=== PATIENT | male | born 1950 | race Caucasian/White ===

== ENCOUNTER 2017-01-06 17:02 | Emergency (ER) | payer OTHER ==
--- NOTE | 2017-01-06 17:22 | DR.CP ---
HPI - Time Seen Time seen: 17:20 - HPI Comment HPI Comment: PATIENT IS 66YR OLD MALE WITH COPD ON NEB AND INHALER PRESENTED WITH BELOW CHEST PAIN WITH SOB. TOOK 81MG ASA AND ONE S/L NTG WITHOUT RELIEF. CAME TO ED. THE NTG WAS FROM HIS [facility]. SIMILAR PAIN 10DAYS AGO THAT WAS RELIEVE WITH ONE 81MG ASA. - Complaint Chief Complaint Doctor Comments: CHEST PAIN RADIATING TO LEFT ARM TIMES ONE AND HALF HOURS. - Reviewed Nurses Notes Review: Yes - Source History Provided: Patient - Mode of Arrival Mode of Arrival: Ambulatory - Timing Came on: Suddenly - Duration Duration: Constant Duration: Hours - Location Chest Pain Radiation Location: Left Arm - Context Onset: At rest Cardiac Risk Factors: Smoker PE Risk Factors: None History of: Similar pain in the past (10DAYS AGO AND WENT AWAY.) Prehospital Care: [facility] Nitro, ASA - Quality Quality: Sharp, Other (TIGHTNESS) - Severity Severity: Severe - Modifying Factors Worsens: Breathing Impoves: Nothing - Associated Signs and Symptoms Associated Signs and Symptoms: Shortness of Breath ROS - Review of Systems Constitutional: Weakness, Fatigue. negative: Chills, Fever Eyes: No Symptoms Reported. negative: Eye Pain, Discharge ENTM: negative: Ear Pain, Nose Discharge, Nose Congestion, Throat Pain Respiratoy: Non-Productive Cough, Short of Breath, Wheezing Cardiovascular: Chest Pain. negative: Edema Gastrointestinal/Abdominal: Nausea. negative: Abdominal Pain, Diarrhea, Vomiting Genitourinary: negative: Dysuria, Frequency, Hematuria Neurological: Weakness. negative: Headache, Dizziness Musculoskeletal: No Symptoms Reported Integumentary: No Symptoms Reported Hematologic/Lymphatic: No Symptoms Reported Endocrine: No Symptoms Reported All Other Systems: Reviewed and Negative PE - Vitals Vitals: Temperature 97.2 F Pulse Rate [Left Brachial] 61 Pulse Rate 82 Respiratory Rate 20 Blood Pressure [Left Arm] 143/87 Blood Pressure 178/98 O2 Sat by Pulse Oximetry 100 - General Limitations: No Limitations General Appearance: Alert - Head Head Exam: Normal Inspection - Eyes Eye exam: Normal Appearance - ENT ENT Exam: Normal External Ear Exam - Chest Chest Inspection: Symmetric Chest Wall Rise - Respiratory Respiratory Exam: Normal Lung Sounds Bilat Respiratory Exam: Bilateral Wheezing, Bilateral Rhonchi, Lower Wheezing, Lower Rhonchi - Cardiovascular Cardiovascular Exam: Regular Rate, Normal Rhythm, Normal Heart Sounds Pulse: Normal, Radial, Femoral Edema: Normal - Abdominal Exam Abdominal Exam: Normal Bowel Sounds, Soft. negative: Tenderness - Extremities Extremities Exam: Normal Inspection - Back Back Exam: Normal Inspection - Neurologic Neurological Exam: Alert, Oriented X3 - Psychiatric Psychiatric Exam: Anxious - Skin Skin Exam: Normal Color MDM - Differential Diagnosis Differential Diagnosis: Angina, CHF, Esophageal Reflux/Spasm, Myocardial Infarction, Pericarditis, Pleuritis, Pancreatitis, Pneumonia, Pneumothorax, Pulmonary Embolus Course - Treatment Treatment: TNK PER PROTOCOL GIVEN IN ED. SEE ORDERS. - Consultation Consultation Comments: DISCUSS PATIENT WITH DR. REYES HAND INSERTER OPERATOR AT [facility] IN [place]. THROMBOLYTIC THERAPY RECOMMENDED AND TRANSFER TO ED IN [facility]. - Education/Counseling Education/Counseling: Patient, Education Educated On: Treatment, Diagnosis ROR - Labs Reviewed Laboratory Results Reviewed?: Yes Result Diagrams: 01/06/17 17:35 01/06/17 17:35 Laboratory: WBC 9.9 X10^3/uL (3.6-10.0) 01/06/17 17:35 RBC 5.05 X10^6/uL (4.7-6.0) 01/06/17 17:35 Hgb 15.8 g/dL (13.5-18.0) 01/06/17 17:35 Hct 45.6 % (42.0-54.0) 01/06/17 17:35 MCV 90.3 fL (80.0-100.0) 01/06/17 17:35 MCH 31.3 pg (27.0-34.0) 01/06/17 17:35 MCHC 34.7 g/dL (33.0-35.0) 01/06/17 17:35 RDW 13.9 % (11.6-16.5) 01/06/17 17:35 Plt Count 285 X10^3/uL (150.0-450.0) 01/06/17 17:35 MPV 8.1 fL (7.4-11.0) 01/06/17 17:35 Neut % 54.7 % (42.0-75.0) 01/06/17 17:35 Lymph % 29.2 % (21.0-51.0) 01/06/17 17:35 Kings % 12.3 % (0.0-13.0) 01/06/17 17:35 Eos % 2.4 % (0.9-2.9) 01/06/17 17:35 Baso % 1.4 % (0.2-1.0) H 01/06/17 17:35 Neut # 5.4 x10^3/uL (2.2-4.8) H 01/06/17 17:35 Lymph # 2.9 X10^3/uL (1.3-2.9) 01/06/17 17:35 Kings # 1.2 x10^3/uL (0.3-0.8) H 01/06/17 17:35 Eos # 0.2 x10^3/uL (0.0-0.2) 01/06/17 17:35 Baso # 0.1 X10^3/uL (0.0-0.1) 01/06/17 17:35 Absolute Nucleated RBC 0.1 /100WBC 01/06/17 17:35 INR Target Range - 01/06/17 17:35 INR 0.97 (0.8-1.3) 01/06/17 17:35 PTT 29.3 SECONDS (22.9-36.5) 01/06/17 17:35 PTT Comment - 01/06/17 17:35 Fibrinogen 337 mg/dL (239-489) 01/06/17 17:35 Sodium 135 mmol/L (136-145) L 01/06/17 17:35 Corrected Sodium TNP 01/06/17 17:35 Potassium 4.4 mmol/L (3.5-5.1) 01/06/17 17:35 Chloride 99 mmol/L (98-107) 01/06/17 17:35 Carbon Dioxide 28.6 mmol/L (21-32) 01/06/17 17:35 BUN 12 mg/dL (7-18) 01/06/17 17:35 Creatinine 1.09 mg/dL (0.70-1.30) 01/06/17 17:35 Est GFR (MDRD) Af Amer > 60 (>60) 01/06/17 17:35 Est GFR (MDRD) Non-Af > 60 (>60) 01/06/17 17:35 Glucose 107 mg/dL (65-99) H 01/06/17 17:35 Calcium 9.2 mg/dL (8.5-10.1) 01/06/17 17:35 Corrected Calcium TNP 01/06/17 17:35 Total Bilirubin 0.30 mg/dL (0.2-1.0) 01/06/17 17:35 AST 20 Units/L (15-37) 01/06/17 17:35 ALT 25 Units/L (12-78) 01/06/17 17:35 Alkaline Phosphatase 67 Units/L (46-116) 01/06/17 17:35 Creatine Kinase 60 Units/L (39-308) 01/06/17 17:35 CK-MB (CK-2) < 1.0 ng/mL (0-4.0) 01/06/17 17:35 CK/CKMB % Calc 1.7 % (<4) 01/06/17 17:35 Troponin I 0.04 ng/mL (0-1.5) 01/06/17 17:35 Total Protein 7.6 g/dL (6.4-8.2) 01/06/17 17:35 Albumin 3.8 g/dL (3.4-5.0) 01/06/17 17:35 Globulin 3.8 g/dL (2.5-4.5) 01/06/17 17:35 Albumin/Globulin Ratio 1.0 Ratio (1.1-2.1) L 01/06/17 17:35 Specimen Type Catherized urine 01/06/17 18:11 Urine Color Yellow (YELLOW) 01/06/17 18:11 Urine Appearance Hazy (CLEAR) 01/06/17 18:11 Urine pH 5.0 (5.0 - 8.0) 01/06/17 18:11 Ur Specific [place] 1.030 (1.000-1.030) 01/06/17 18:11 Urine Protein 1+ (NEGATIVE) 01/06/17 18:11 Urine Glucose (UA) Negative (NEGATIVE) 01/06/17 18:11 Urine Ketones Negative (NEGATIVE) 01/06/17 18:11 Urine Occult Blood 1+ (NEGATIVE) 01/06/17 18:11 Urine Nitrite Negative (NEGATIVE) 01/06/17 18:11 Urine Bilirubin Negative (NEGATIVE) 01/06/17 18:11 Urine Urobilinogen Normal (NORMAL) 01/06/17 18:11 Ur Leukocyte Esterase 1+ (NEGATIVE) 01/06/17 18:11 Urine RBC 0-5 /HPF (NEGATIVE) 01/06/17 18:11 Urine WBC 0-2 /HPF (NEGATIVE) 01/06/17 18:11 Ur Squamous Epith Cells Negative /HPF (NEGATIVE) 01/06/17 18:11 Urine Bacteria Trace /HPF (NEGATIVE) 01/06/17 18:11 Ur Culture Indicated? No/not indicated 01/06/17 18:11 Blood Type O POSITIVE 01/06/17 18:05 Antibody Screen Negative 01/06/17 18:05 - XRAY XRAY Interpreted by: Radiologist XRAY Findings: REPORT DISCUSS WITH PATIENT. 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
[2017-01-06] MEDS ORDERED: ASPIRIN 81 MG CHEWTAB ONE (17:27)
[2017-01-06] MEDS ORDERED: PLAVIX ONE (17:27)
[2017-01-06] MEDS ORDERED: LOPRESSOR INJ 5 MG AMP ONE (17:27)
[2017-01-06 17:31] LABS: BASOPHILS # (AUTO) 0.1 X10^3/uL (0.0-0.1); BASOPHILS % (AUTO) 1.4 % (0.2-1.0); EOSINOPHILS # (AUTO) 0.2 x10^3/uL (0.0-0.2); EOSINOPHILS % (AUTO) 2.4 % (0.9-2.9); HEMATOCRIT 45.6 % (42.0-54.0); HEMOGLOBIN 15.8 g/dL (13.5-18.0); LYMPHOCYTES # (AUTO) 2.9 X10^3/uL (1.3-2.9); LYMPHOCYTES % (AUTO) 29.2 % (21.0-51.0); MEAN CORPUSCULAR HEMOGLOBIN 31.3 pg (27.0-34.0); MEAN CORPUSCULAR HGB CONC 34.7 g/dL (33.0-35.0); MEAN CORPUSCULAR VOLUME 90.3 fL (80.0-100.0); MEAN PLATELET VOLUME 8.1 fL (7.4-11.0); MONOCYTES # (AUTO) 1.2 x10^3/uL (0.3-0.8); MONOCYTES % (AUTO) 12.3 % (0.0-13.0); NEUTROPHILS # (AUTO) 5.4 x10^3/uL (2.2-4.8); NEUTROPHILS % (AUTO) 54.7 % (42.0-75.0); PLATELET COUNT 285 X10^3/uL (150.0-450.0); RED BLOOD COUNT 5.05 X10^6/uL (4.7-6.0); RED CELL DISTRIBUTION WIDTH 13.9 % (11.6-16.5); WHITE BLOOD COUNT 9.9 X10^3/uL (3.6-10.0)
[2017-01-06] MEDS ORDERED: LOPRESSOR INJ 5 MG AMP IVP ONE (17:34)
[2017-01-06] MEDS ORDERED: ASPIRIN 81 MG CHEWTAB PO SCH (17:34)
--- NOTE | 2017-01-06 17:37 | RAD ---
HISTORY: Chest pain. Study: Single-view chest. Comparison: None. Findings: The trachea is midline. The cardiac silhouette is within normal limits. A 5 mm calcific density pro jects over the right lung base possibly reflecting a granuloma. The lungs are otherwise clear without focal consolidation, pleural effusion or pneumothorax. The bony thorax is unremarkable. IMPRESSION: No acute cardiopulmonary disease. Reported By:
[2017-01-06] MEDS ORDERED: MORPHINE SULFATE INJ 4 MG ONE ×2 (17:57→18:40)
[2017-01-06] MEDS ORDERED: ZOFRAN INJ 4 MG VIAL ONE (17:57)
[2017-01-06] MEDS ORDERED: HEPARIN SODIUM IN D5W 25,000 UNITS/500 ML BAG IV PRN (18:00)
[2017-01-06] MEDS ORDERED: ZOFRAN INJ 4 MG VIAL IVP PRN (18:00)
[2017-01-06] MEDS ORDERED: MORPHINE SULFATE INJ 4 MG IVP ONE ×2 (18:00→18:39)
[2017-01-06] MEDS ORDERED: PLAVIX PO SCH (18:00)
[2017-01-06 18:09] VITALS: BP 143/87; BMI 22.6
[2017-01-06 18:11] LABS: BLOOD UREA NITROGEN 12 mg/dL (7-18); CALCIUM 9.2 mg/dL (8.5-10.1); CARBON DIOXIDE 28.6 mmol/L (21-32); CHLORIDE 99 mmol/L (98-107); CREATININE 1.09 mg/dL (0.70-1.30); SODIUM 135 mmol/L (136-145); TROPONIN I 0.04 ng/mL (0-1.5); eGFR BLACK RACES > 60 (>60); eGFR NON BLACK RACES > 60 (>60)
[2017-01-06 18:15] LABS: ALANINE AMINOTRANSFERASE 25 Units/L (12-78); ALBUMIN 3.8 g/dL (3.4-5.0); ALKALINE PHOSPHATASE 67 Units/L (46-116); ASPARTATE AMINO TRANSFERASE 20 Units/L (15-37); CREATINE KINASE 60 Units/L (39-308); CREATINE KINASE MB < 1.0 ng/mL (0-4.0); TOTAL PROTEIN 7.6 g/dL (6.4-8.2)
[2017-01-06] MEDS ORDERED: [UNRECOGNIZED DRUG - OTHER] IV PRN (18:26)
[2017-01-06] MEDS ORDERED: TNKASE IVP STA (18:29)
[2017-01-06 18:30] LABS: CKMB % 1.7 % (<4)
[2017-01-06 18:42] LABS: BILIRUBIN,URINE NEGATIVE (NEGATIVE); BLOOD/HEMOGLOBIN,URINE 1+ (NEGATIVE); GLUCOSE, URINE NEGATIVE (NEGATIVE); KETONES,URINE NEGATIVE (NEGATIVE); LEUKOCYTE ESTERASE ,URINE 1+ (NEGATIVE); NITRITES,URINE NEGATIVE (NEGATIVE); PROTEIN,URINE 1+ (NEGATIVE); UROBILINOGEN,URINE NORMAL (NORMAL)
[2017-01-06 18:48] LABS: APPEARANCE,URINE HAZY (CLEAR); COLOR,URINE YELLOW (YELLOW); RBC,URINE 0-5 /HPF (NEGATIVE); SQUAMOUS EPITHELIAL CELL,UR NEGATIVE /HPF (NEGATIVE)
[2017-01-06 18:49] LABS: BACTERIA,URINE TRACE /HPF (NEGATIVE)
== END 2017-01-06 19:05 | disposition short-term general hospital (02) ==
LOC: ER 17:09
DX: I21.19 ST elevation (STEMI) myocardial infarction involving other coronary artery of inferior wall (principal)
CPT/HCPCS: 36415; 71010; 80053; 81001; 82550; 82553; 84484; 85025; 85384; 85610; 85730; 86850; 86900; 86901; 93005; 93010; 93041; 96365; 96374; 96375; 99291; 99292; A4222; J2270; J2405; J3490

== ENCOUNTER 2017-11-01 17:22 | Observation (INO) ==
[2017-11-01 17:29] VITALS: BMI 22.1
[2017-11-01] MEDS ORDERED: NITRO-BID OINT 2% Multi-Dose tube ONE (17:39)
[2017-11-01] MEDS: NITROSTAT SL PRN ×2 (17:45→17:59)
[2017-11-01 17:48] LABS: BASOPHILS # (AUTO) 0.1 X10^3/uL (0.0-0.1); BASOPHILS % (AUTO) 1.2 % (0.2-1.0); EOSINOPHILS # (AUTO) 0.1 x10^3/uL (0.0-0.2); HEMATOCRIT 46.7 % (42.0-54.0); HEMOGLOBIN 15.9 g/dL (13.5-18.0); LYMPHOCYTES # (AUTO) 2.2 X10^3/uL (1.3-2.9); LYMPHOCYTES % (AUTO) 23.5 % (21.0-51.0); MEAN CORPUSCULAR HEMOGLOBIN 31.1 pg (27.0-34.0); MEAN CORPUSCULAR HGB CONC 34.1 g/dL (33.0-35.0); MEAN PLATELET VOLUME 7.9 fL (7.4-11.0); MONOCYTES # (AUTO) 0.9 x10^3/uL (0.3-0.8); MONOCYTES % (AUTO) 9.9 % (0.0-13.0); NEUTROPHILS # (AUTO) 5.9 x10^3/uL (2.2-4.8); NEUTROPHILS % (AUTO) 64.4 % (42.0-75.0); PLATELET COUNT 259 X10^3/uL (150.0-450.0); RED BLOOD COUNT 5.13 X10^6/uL (4.7-6.0); WHITE BLOOD COUNT 9.2 X10^3/uL (3.6-10.0)
--- NOTE | 2017-11-01 17:48 | DR.HEADACH ---
HPI Time Seen Time seen: 17:37 Primary Care Physician Primary Care Physician: ALINA HPI Comment HPI Comment: PATIENT SAID HE HAS LEFT SIDED HEADACHE FOR 2 WEEKS. WORSE TODAY. LEFT SIDED CHEST PRESSURE AND TIGHTNESS THAT STARTED TODAY AND GETTING WOSE. PAIN ASSOCIATED WITH WEAKNESS AND SOB. Complaint/Symptoms Chief Complaint Doctors Comments: CHEST PAIN, HEADACHE. Chief Complaint:: PT C/O CHEST PAIN AND TIGTNESS TO HIS CHEST AND SOB, PT C/O PAIN TO THE RIGHT SIDE OF HEAD THAT STARTED 2 WEEKS AGO AND HE WANTS TO MAKE SURE HE DOES NOT HAVE A BLEED, Pertinent History: Cardiac Problems and Headache Self Treatment fo Chief Complaint: NONE Reviewed Nurses Notes Reviewed: Yes Source History Provided: Patient Mode of Arrival Mode of Arrival: Ambulatory Timing Onset of Chief Complaint: 11/01/17 Duration Since Onset: Constant Duration: Days Location Headache Location: Parietal Quality Quality: Throbbing and Aching Severity Headache Severity: Worst Headache of Life Context Headache Onset Circumstances: Spontaneous History of: None Prior Work Up: None Modifying Factors Improves With: Analgesics Worsens: Nothing Associated Signs and Symptoms Associated Symptoms: None Aura: denies Visual, Sensory, Motor and Mood PMH PMH Past Medical History: Yes Past Medical History: COPD and [place] Past Surgical History: Yes Surgical History: Angioplasty/Stents Family History History of Family Medical Conditions: No Social History Does patient currently use any type of tobacco product: No Have you used tobacco products in the last 12 months: No Type of Tobacco Use: None Does any household member use tobacco: No Alcohol Use: None Do you use any recreational Drugs:: No Lives With: Family Lives Where: Home infectious screening In the last 2 months have you had wt loss of >10#?: NO Have you had fever, night sweats or hemotysis?: No Have you traveled outside the country in the last 6 months?: No Isolation: Standard ROS Review of Systems Constitutional: Weakness and Fatigue; negative Chills and Fever Eyes: No Symptoms Reported ENTM: negative Ear Pain, Ear Discharge, Nose Congestion, Mouth Pain and Throat Pain Respiratoy: Non-Productive Cough and Short of Breath; negative Productive Cough , Wheezing (TIGHTNESS.) and Hemoptysis Cardiovascular: Chest Pain Gastrointestinal/Abdominal: No Symptoms Reported Genitourinary: No Symptoms Reported Neurological: Headache and Weakness Musculoskeletal: No Symptoms Reported Integumentary: No Symptoms Reported Hematologic/Lymphatic: No Symptoms Reported Psychiatric: No Symptoms Reported All Other Systems: Reviewed and Negative PE Vital Signs Vitals: Temperature 96.9 F Pulse Rate [Apical] 52 Pulse Rate 66 Respiratory Rate 11 Blood Pressure [Left Arm] 158/76 Blood Pressure 134/75 O2 Sat by Pulse Oximetry 98 General General Appearance: Alert and In No Apparent Distress Head Head Exam: Normal Inspection, Atraumatic and Normocephalic Eyes Eye exam: PERRL and EOMI; negative Scleral Icterus and Conjunctival Injection Eyelids: Normal Inspection: Bilateral Pupils: Regular, Round: Bilateral and Reactive: Bilateral Sclera/Conjunctival: Normal Inspection: Bilateral ENT ENT Exam: Normal Exam, Normal Oropharynx, Normal External Ear Exam, Mucous Membranes Moist and TM's Normal Bilaterally External Ear Exam: Normal External Inspection TM/Canal Exam: Bilateral: Normal Nose Exam: Normal Nose Exam Mouth Exam: Normal Inspection Teeth Exam: Normal Inspection Throat Exam: Normal Inspection Neck Neck Exam: Normal Inspection and Trachea Midline Chest Chest Inspection: Normal Inspection and Symmetric Chest Wall Rise Respiratory Respiratory Exam: Normal Lung Sounds Bilat Respiratory Exam: Bilateral: Rales and Lower: Rales Cardiovascular Cardiovascular Exam: Regular Rate, Normal Rhythm and Normal Heart Sounds Abdominal Exam Abdominal Exam: Normal Inspection, Normal Bowel Sounds and Soft; negative Tenderness Extremities Extremities Exam: Normal Inspection and Normal Capillary Refill; negative Edema Back Back Exam: Normal Inspection Neurologic Neurological Exam: Alert, Oriented X3 and CN II-XII Intact; negative Motor Sensory Deficit Psychiatric Psychiatric Exam: Normal Affect, Normal Mood and Anxious Skin Skin Exam: Warm MDM Additional Information Obtained Additional Information Obtained From: Family Differential Diagnosis Differential Diagnosis: Considerations may include:: Migraine, Hypertensive, CVA , Intracerebral Hemorrhage, Mass Lesion and Sinusitis Differential Diagnosis Comment: CHEST PAIN, UT, PNEUMONIA, PE, PNEUMOTHORAX COURSE Treatment Treatment: SEE ORDERS. Consultation Consultation Comments: DISCUSS PATIENT WITH DR. ARAMBULA. HE WILL ADMIT PATIENT. Education/Counseling Education/Counseling: Patient, Family and Education Educated On: Diagnosis ROR Labs Reviewed Laboratory Results Reviewed?: Yes Result Diagrams: 11/01/17 18:04 11/01/17 18:04 Laboratory: WBC 9.2 X10^3/uL (3.6-10.0) 11/01/17 18:04 RBC 5.13 X10^6/uL (4.7-6.0) 11/01/17 18:04 Hgb 15.9 g/dL (13.5-18.0) 11/01/17 18:04 Hct 46.7 % (42.0-54.0) 11/01/17 18:04 MCV 91.0 fL (80.0-100.0) 11/01/17 18:04 MCH 31.1 pg (27.0-34.0) 11/01/17 18:04 MCHC 34.1 g/dL (33.0-35.0) 11/01/17 18:04 RDW 14.0 % (11.6-16.5) 11/01/17 18:04 Plt Count 259 X10^3/uL (150.0-450.0) 11/01/17 18:04 MPV 7.9 fL (7.4-11.0) 11/01/17 18:04 Neut % (Auto) 64.4 % (42.0-75.0) 11/01/17 18:04 Lymph % (Auto) 23.5 % (21.0-51.0) 11/01/17 18:04 Elk % (Auto) 9.9 % (0.0-13.0) 11/01/17 18:04 Eos % (Auto) 1.0 % (0.9-2.9) 11/01/17 18:04 Baso % (Auto) 1.2 % (0.2-1.0) H 11/01/17 18:04 Neut # (Auto) 5.9 x10^3/uL (2.2-4.8) H 11/01/17 18:04 Lymph # (Auto) 2.2 X10^3/uL (1.3-2.9) 11/01/17 18:04 Elk # (Auto) 0.9 x10^3/uL (0.3-0.8) H 11/01/17 18:04 Eos # (Auto) 0.1 x10^3/uL (0.0-0.2) 11/01/17 18:04 Baso # (Auto) 0.1 X10^3/uL (0.0-0.1) 11/01/17 18:04 Absolute Nucleated RBC 0.0 /100WBC 11/01/17 18:04 INR Target Range - 11/01/17 18:04 INR 0.94 (0.8-1.3) 11/01/17 18:04 APTT 24.6 SECONDS (22.9-36.5) 11/01/17 18:04 PTT Comment - 11/01/17 18:04 D-Dimer < 100 ng/mL (0-400) 11/01/17 18:04 Sodium 134 mmol/L (136-145) L 11/01/17 18:04 Corrected Sodium TNP 11/01/17 18:04 Potassium 4.3 mmol/L (3.5-5.1) 11/01/17 18:04 Chloride 101 mmol/L (98-107) 11/01/17 18:04 Carbon Dioxide 22.9 mmol/L (21-32) 11/01/17 18:04 BUN 14 mg/dL (7-18) 11/01/17 18:04 Creatinine 0.99 mg/dL (0.70-1.30) 11/01/17 18:04 Est GFR (MDRD) Af Amer > 60 (>60) 11/01/17 18:04 Est GFR (MDRD) Non-Af > 60 (>60) 11/01/17 18:04 Glucose 96 mg/dL (65-99) 11/01/17 18:04 Calcium 9.1 mg/dL (8.5-10.1) 11/01/17 18:04 Corrected Calcium TNP 11/01/17 18:04 Magnesium 2.2 mg/dL (1.7-2.9) 11/01/17 18:04 Total Bilirubin 0.60 mg/dL (0.2-1.0) 11/01/17 18:04 AST 24 Units/L (15-37) 11/01/17 18:04 ALT 29 Units/L (12-78) 11/01/17 18:04 Alkaline Phosphatase 65 Units/L (46-116) 11/01/17 18:04 Creatine Kinase 90 Units/L (39-308) 11/01/17 18:04 CK-MB (CK-2) 1.5 ng/mL (0-4.0) 11/01/17 18:04 CK/CKMB % Calc 1.7 % (<4) 11/01/17 18:04 Troponin I < 0.02 ng/mL (0-1.5) 11/01/17 18:04 B-Natriuretic Peptide 60.5 pg/mL (0-79) 11/01/17 18:07 Total Protein 7.5 g/dL (6.4-8.2) 11/01/17 18:04 Albumin 4.0 g/dL (3.4-5.0) 11/01/17 18:04 Globulin 3.5 g/dL (2.5-4.5) 11/01/17 18:04 Albumin/Globulin Ratio 1.1 Ratio (1.1-2.1) 11/01/17 18:04 XRAY XRAY Interpreted by: Radiologist XRAY Findings: REPORT DISCUSS WITH PATIENT. EKG [place]: Normal Rhythm: NSR Block: None Hypertrophy: None ST: Normal Diagnosis Discharge Problem: Chest pain, Headache
--- NOTE | 2017-11-01 18:11 | CT ---
CT of the head without contrast. Indication: Right-sided headache Technique: 5 mm axial images of the brain was obtained with coronal sagittal reformats generated from the original data set. Comparison: None Findings: There is no intracranial hemorrhage, mass effect or abnormal hypodensity to suggest recent ischemia. The ventricles and extra-axial spaces normal. The globes, sella posterior fossa show no abn ormality. The visualized paranasal sinuses and mastoid air cells are clear bilaterally. Conclusion: No intracranial hemorrhage, mass effect or hypodensities to suggest recent ischemia. Reported By:
[2017-11-01] MEDS ORDERED: MORPHINE SULFATE INJ 4 MG IVP ONE (18:28)
[2017-11-01] MEDS ORDERED: MORPHINE SULFATE INJ 4 MG ONE (18:30)
[2017-11-01 18:33] LABS: BLOOD UREA NITROGEN 14 mg/dL (7-18); CALCIUM 9.1 mg/dL (8.5-10.1); CARBON DIOXIDE 22.9 mmol/L (21-32); CHLORIDE 101 mmol/L (98-107); CREATININE 0.99 mg/dL (0.70-1.30); SODIUM 134 mmol/L (136-145); TROPONIN I < 0.02 ng/mL (0-1.5); eGFR NON BLACK RACES > 60 (>60)
--- NOTE | 2017-11-01 18:34 | RAD ---
HISTORY: Chest pain and shortness of breath. Study: Portable chest. Comparison: Chest x-ray dated January 06, 2017. Findings: The trachea is midline. The cardiac silhouette is unremarkable. Chronic emphysematous changes. No o bvious focal consolidation, pleural effusion, or pneumothorax. The bony thorax is unremarkable. IMPRESSION: No acute cardiopulmonary disease. Reported By:
[2017-11-01 18:37] LABS: ALANINE AMINOTRANSFERASE 29 Units/L (12-78); ALKALINE PHOSPHATASE 65 Units/L (46-116); ASPARTATE AMINO TRANSFERASE 24 Units/L (15-37); CKMB % 1.7 % (<4); CREATINE KINASE 90 Units/L (39-308); CREATINE KINASE MB 1.5 ng/mL (0-4.0); MAGNESIUM 2.2 mg/dL (1.7-2.9); TOTAL PROTEIN 7.5 g/dL (6.4-8.2)
[2017-11-01] MEDS ORDERED: MORPHINE SULFATE INJ 2 MG INJ IVP PRN (22:23)
[2017-11-01] MEDS ORDERED: NITROGLYCERIN IV PREMIX 50 MG 50 MG/250 ML BAG IV PRN (22:23)
[2017-11-01] MEDS: PROTONIX INJ 40 MG VIAL IVP SCH (23:30)
[2017-11-01] MEDS: NS 1000 ML 1,000 ML IV SCH (23:30)
[2017-11-02 05:14] LABS: BASOPHILS # (AUTO) 0.1 X10^3/uL (0.0-0.1); EOSINOPHILS # (AUTO) 0.2 x10^3/uL (0.0-0.2); EOSINOPHILS % (AUTO) 2.6 % (0.9-2.9); HEMATOCRIT 43.1 % (42.0-54.0); HEMOGLOBIN 14.7 g/dL (13.5-18.0); LYMPHOCYTES # (AUTO) 2.7 X10^3/uL (1.3-2.9); MEAN CORPUSCULAR HEMOGLOBIN 30.8 pg (27.0-34.0); MEAN CORPUSCULAR HGB CONC 34.1 g/dL (33.0-35.0); MEAN CORPUSCULAR VOLUME 90.3 fL (80.0-100.0); MEAN PLATELET VOLUME 7.5 fL (7.4-11.0); MONOCYTES # (AUTO) 1.3 x10^3/uL (0.3-0.8); MONOCYTES % (AUTO) 14.3 % (0.0-13.0); NEUTROPHILS # (AUTO) 4.7 x10^3/uL (2.2-4.8); NEUTROPHILS % (AUTO) 52.1 % (42.0-75.0); PLATELET COUNT 215 X10^3/uL (150.0-450.0); RED BLOOD COUNT 4.77 X10^6/uL (4.7-6.0); RED CELL DISTRIBUTION WIDTH 13.9 % (11.6-16.5)
[2017-11-02 05:27] LABS: ALANINE AMINOTRANSFERASE 25 Units/L (12-78); ALBUMIN 3.5 g/dL (3.4-5.0); ALKALINE PHOSPHATASE 58 Units/L (46-116); ASPARTATE AMINO TRANSFERASE 17 Units/L (15-37); BLOOD UREA NITROGEN 12 mg/dL (7-18); CALCIUM 8.1 mg/dL (8.5-10.1); CARBON DIOXIDE 26.1 mmol/L (21-32); CHLORIDE 104 mmol/L (98-107); CHOL/HDL RATIO 2.5 (0.0-5.0); CHOLESTEROL 101 mg/dL (0-200); CREATININE 0.96 mg/dL (0.70-1.30); HDL CHOLESTEROL 40 mg/dL (40-60); MAGNESIUM 2.4 mg/dL (1.7-2.9); SODIUM 138 mmol/L (136-145); TOTAL PROTEIN 6.8 g/dL (6.4-8.2); TRIGLYCERIDES 136 mg/dL (0-150); eGFR NON BLACK RACES > 60 (>60)
[2017-11-02 06:26] LABS: BILIRUBIN,URINE NEGATIVE (NEGATIVE); BLOOD/HEMOGLOBIN,URINE NEGATIVE (NEGATIVE); GLUCOSE, URINE 4+ (NEGATIVE); KETONES,URINE 1+ (NEGATIVE); LEUKOCYTE ESTERASE ,URINE NEGATIVE (NEGATIVE); NITRITES,URINE NEGATIVE (NEGATIVE); PROTEIN,URINE 1+ (NEGATIVE); UROBILINOGEN,URINE NORMAL (NORMAL)
[2017-11-02 06:54] LABS: APPEARANCE,URINE CLEAR (CLEAR); COLOR,URINE YELLOW (YELLOW)
[2017-11-02 06:57] LABS: RBC,URINE NONE SEEN /HPF (NONE SEEN); SQUAMOUS EPITHELIAL CELL,UR RARE /HPF (NEGATIVE)
[2017-11-02 06:58] LABS: AMORPHOUS SEDIMENT,UR TRACE /HPF (NEGATIVE); BACTERIA,URINE NEGATIVE /HPF (NEGATIVE); HYALINE CASTS, URINE FEW /LPF (NEGATIVE)
[2017-11-02] MEDS: PROTONIX INJ 40 MG VIAL IVP SCH (09:01)
[2017-11-02] MEDS ORDERED: LOPRESSOR TAB 50 MG ONE (09:18)
[2017-11-02] MEDS: ASPIRIN EC 81 MG PO SCH (09:27)
[2017-11-02] MEDS: LOPRESSOR TAB 50 MG PO SCH ×3 (09:27→21:30)
[2017-11-02] MEDS: PLAVIX PO SCH (09:27)
[2017-11-02] MEDS ORDERED: DUONEB 0.5 MG/3 MG ONE (09:38)
[2017-11-02] MEDS: DUONEB 0.5 MG/3 MG NEB SCH ×4 (09:45→21:15)
[2017-11-02] MEDS ORDERED: Atrovent NEB TX 0.02% NEB SCH (10:00)
[2017-11-02 11:09] LABS: CKMB % 1.4 % (<4); CREATINE KINASE 93 Units/L (39-308); CREATINE KINASE MB 1.3 ng/mL (0-4.0); TROPONIN I < 0.02 ng/mL (0-1.5)
[2017-11-02] MEDS: ATIVAN TAB 1 MG PO PRN ×2 (11:35→20:47)
[2017-11-02] MEDS: NS 1000 ML 1,000 ML IV SCH (11:49)
[2017-11-02] MEDS ORDERED: DUONEB 0.5 MG/3 MG NEB SCH (12:00)
--- NOTE | 2017-11-02 12:16 | DR.H&P ---
H&P - History & Physical for Day of: H&P Date: 11/01/17 - Chief Complaint Chief Complaint: LEFT SIDE HEAD PAIN, CP - History of Present Illness History of Present Illness: 67 [facility] ER ADMISSION AFTER PRESENTING WITH [facility] LEFT SIDE HEAD PAIN, STAHL WORSE OVER PAST WEEK WITH ONSET OF CHEST PAIN. PT STATES " I THINK ITS MY NERVES. NARENDRA BEEN REAL ANXIOUS ABOUT HEAD". PT HAS PMH OF COPD, HTN AND CAD. PT STATES STENT PLACEMENT 12/2016 AND HAS HAD CARDIAC EVALUATION AT [facility] IN THE LAST 3-[address] PT [address] HEAD IN ER WITHOUT ACUTE FINDINGS. PT ADMITTED R/O AMI, EVALUATION OF PAIN LEFT SIDE HEAD. - Past Medical History Past Medical History: COPD, Coronary Artery Disease, Hypertension, [place] - Past Surgical History Surgical History: Angioplasty/Stents - Social History Does patient currently use any type of tobacco product: No Have you used tobacco products in the last 12 months: No Type of Tobacco Use: Smokeless Does any household member use tobacco: No Alcohol Use: None Drug Use: Prescription Drugs - Medications Home Medications: No Known Drug Allergies Allergy (Verified 11/01/17 22:01) CONTINUE taking the following medications aspirin [Aspir-81] 81 mg PO DAILY 11/02/17 [History] atorvastatin [Lipitor] 40 mg PO DAILY 11/02/17 [History] clopidogrel [Plavix] 75 mg PO DAILY 11/02/17 [History] ipratropium-albuterol 0.5 - 2.5 mg INHALATION Q6H PRN 11/02/17 [History] metoprolol tartrate [Lopressor] 50 mg PO BID 11/02/17 [History] - Review of Systems Constitutional: No Symptoms Reported Eyes: No Symptoms Reported ENT: No Symptoms Reported Respiratory: SOB with Excertion Cardiovascular: Chest Pain. denies: Edema Gastrointestinal: No Symptoms Reported Genitourinary: No Symptoms Reported Musculoskeletal: No Symptoms Reported Skin: No Symptoms Reported Neurological: Other (LEFT SIDE HEADACHE, HEAD PAIN) - Physical Exam Vital Signs: Temperature 98.0 F Pulse Rate [Apical] 66 Pulse Rate 66 Respiratory Rate 18 Blood Pressure [Left Arm] 105/57 Blood Pressure 134/75 O2 Sat by Pulse Oximetry 96 Oriented: Normal Eyes: Normal Ear: Normal Nose: Normal Throat: Normal Respiratory: Wheezes Throughout (MILD BILATER EXP WHEEZES), RLL Diminished, LLL Diminished Cardiovascular: Normal. negative: Edema : Normal Auscultation: Bowel Sounds: Normal Palpation: Normal Tenderness: Normal Skin: Normal Musculoskeletal: Normal Psychiatric: Anxiety Affect: Anxious Speech Pattern: Clear, Appropriate - Assessment/Plan (1) Chest pain Qualifiers: Chest pain type: precordial pain Qualified Code(s): R07.2 - Precordial pain Status: Acute Plan: ADMIT, SERIAL CE, EKG. RESUME HOME MEDS, PLAVIX AND STATIN THERAPY. BP CONTROL, PAIN CONTROL. CT HEAD ON ADMISSION, CTA CAROTID ARTERIES\\. RESP THERAPY PRN (2) CAD (coronary artery disease) Status: Acute (3) COPD (chronic obstructive pulmonary disease) Status: Acute (4) Headache Qualifiers: Headache type: unspecified Headache chronicity pattern: acute headache Intractability: intractable Qualified Code(s): R51 - Headache Status: Acute - Allergies Allergies/Adverse Reactions: Allergies Allergy/AdvReac Type Severity Reaction Status Date / Time No Known Drug Allergies Allergy Verified 11/01/17 22:01
[2017-11-02 16:51] LABS: CKMB % 1.7 % (<4); CREATINE KINASE 93 Units/L (39-308); CREATINE KINASE MB 1.6 ng/mL (0-4.0); TROPONIN I < 0.02 ng/mL (0-1.5)
[2017-11-02] MEDS ORDERED: LIPITOR TAB 40 MG PO SCH (17:00)
[2017-11-02] MEDS: LIPITOR TAB 40 MG PO SCH (17:14)
[2017-11-03 05:19] LABS: BASOPHILS # (AUTO) 0.1 X10^3/uL (0.0-0.1); EOSINOPHILS # (AUTO) 0.3 x10^3/uL (0.0-0.2); EOSINOPHILS % (AUTO) 3.3 % (0.9-2.9); HEMATOCRIT 41.9 % (42.0-54.0); LYMPHOCYTES # (AUTO) 2.5 X10^3/uL (1.3-2.9); LYMPHOCYTES % (AUTO) 31.7 % (21.0-51.0); MEAN CORPUSCULAR HEMOGLOBIN 30.5 pg (27.0-34.0); MEAN CORPUSCULAR HGB CONC 33.4 g/dL (33.0-35.0); MEAN CORPUSCULAR VOLUME 91.4 fL (80.0-100.0); MEAN PLATELET VOLUME 7.5 fL (7.4-11.0); MONOCYTES # (AUTO) 0.9 x10^3/uL (0.3-0.8); MONOCYTES % (AUTO) 10.7 % (0.0-13.0); NEUTROPHILS # (AUTO) 4.2 x10^3/uL (2.2-4.8); NEUTROPHILS % (AUTO) 53.3 % (42.0-75.0); PLATELET COUNT 218 X10^3/uL (150.0-450.0); RED BLOOD COUNT 4.58 X10^6/uL (4.7-6.0)
[2017-11-03 05:38] LABS: ALANINE AMINOTRANSFERASE 25 Units/L (12-78); ALBUMIN 3.4 g/dL (3.4-5.0); ALKALINE PHOSPHATASE 51 Units/L (46-116); ASPARTATE AMINO TRANSFERASE 17 Units/L (15-37); BLOOD UREA NITROGEN 10 mg/dL (7-18); CALCIUM 8.7 mg/dL (8.5-10.1); CARBON DIOXIDE 30.6 mmol/L (21-32); CHLORIDE 107 mmol/L (98-107); CREATININE 1.03 mg/dL (0.70-1.30); SODIUM 142 mmol/L (136-145); TOTAL PROTEIN 6.6 g/dL (6.4-8.2); eGFR NON BLACK RACES > 60 (>60)
[2017-11-03] MEDS: NS 1000 ML 1,000 ML IV SCH ×3 (07:34→14:54)
[2017-11-03] MEDS ORDERED: NS 100 ML IV 100 ML IV ONE (08:24)
[2017-11-03] MEDS: DUONEB 0.5 MG/3 MG NEB SCH ×3 (09:00→16:56)
[2017-11-03] MEDS: LIPITOR TAB 40 MG PO SCH (09:42)
[2017-11-03] MEDS: ASPIRIN EC 81 MG PO SCH (09:42)
[2017-11-03] MEDS: LOPRESSOR TAB 50 MG PO SCH (09:42)
[2017-11-03] MEDS: PLAVIX PO SCH (09:42)
[2017-11-03] MEDS: PROTONIX INJ 40 MG VIAL IVP SCH (09:43)
[2017-11-03 15:54] VITALS: BP 110/63
--- NOTE | 2017-11-03 16:33 | CT ---
HISTORY: Intractable left-sided headache and hypertension. Study: CTA carotids with contrast Comparison: CT head dated November 01, 2017. Technique: Multiple axial images of the carotid arteries were obtained from skull base to the aortic arch after the administration of IV contrast. MIP images were also performed. Sagittal and coronal r eformats were performed and reviewed. Dose reduction techniques including Automated Exposure Control (AEC) and adjustment of mA and kV were utilized. Findings: The visualized portions of the posterior fossa and orbits are unremarkable in appearance. The paroti d glands, submandibular glands, and thyroid gland are unremarkable in their contrast appearance. The carotid space on the right and left is unremarkable. No mass or significant lymphadenopathy can be identified. The prevertebral and paraspinous regions are unremarkable. The nasopharynx, oropharynx, hypopharynx are unremarkable. The larynx appears symmetric. No significant atherosclerotic vascula r calcifications. The visualized vascular structures appear normal without dissection, focal stenosis , aneurysmal dilatation, or extravasation. Codominant bilateral vertebral arteries. The visualized p ortions of the mediastinum are unremarkable as well. Moderate to severe centrilobular and paraseptal emphysematous changes of the lungs. Degenerative changes of the spine. No aggressive osseous lesions . IMPRESSION: 1. No significant atherosclerotic vascular calcifications or stenosis of the carotid arteries. 2. Remaining exam is unremarkable. Reported By:
--- NOTE | 2017-11-24 17:23 | PCM.DCPLAN ---
Discharge Summary - Admission Date Date of Admission: 11/01/17 - Discharge Date Discharge Date: 11/03/17 - Admission Diagnoses (1) CAD (coronary artery disease) Status: Acute (2) COPD (chronic obstructive pulmonary disease) Status: Acute (3) Chest pain Status: Acute (4) Headache Status: Acute - Discharge Diagnoses Discharge Diagnosis: SAME ADMISSION DIAGNOSIS - Discharge Medications Discharge Medications: Home Medication List aspirin [Aspir-81] 81 mg PO DAILY 11/02/17 [History] atorvastatin [Lipitor] 40 mg PO DAILY 11/02/17 [History] clopidogrel [Plavix] 75 mg PO DAILY 11/02/17 [History] ipratropium-albuterol 0.5 - 2.5 mg INHALATION Q6H PRN 11/02/17 [History] metoprolol tartrate [Lopressor] 50 mg PO BID 11/02/17 [History] Prescriptions: - Hospital Course Vital Signs: Temperature 98.2 F Pulse Rate [Apical] 68 Pulse Rate 69 Respiratory Rate 20 Blood Pressure [Left Arm] 110/63 Blood Pressure 134/75 O2 Sat by Pulse Oximetry 96 Latest Lab Results: Laboratory Last Values WBC 8.0 X10^3/uL (3.6-10.0) 11/03/17 04:08 RBC 4.58 X10^6/uL (4.7-6.0) L 11/03/17 04:08 Hgb 14.0 g/dL (13.5-18.0) 11/03/17 04:08 Hct 41.9 % (42.0-54.0) L 11/03/17 04:08 MCV 91.4 fL (80.0-100.0) 11/03/17 04:08 MCH 30.5 pg (27.0-34.0) 11/03/17 04:08 MCHC 33.4 g/dL (33.0-35.0) 11/03/17 04:08 RDW 14.0 % (11.6-16.5) 11/03/17 04:08 Plt Count 218 X10^3/uL (150.0-450.0) 11/03/17 04:08 MPV 7.5 fL (7.4-11.0) 11/03/17 04:08 Neut % (Auto) 53.3 % (42.0-75.0) 11/03/17 04:08 Lymph % (Auto) 31.7 % (21.0-51.0) 11/03/17 04:08 [place] % (Auto) 10.7 % (0.0-13.0) 11/03/17 04:08 Eos % (Auto) 3.3 % (0.9-2.9) H 11/03/17 04:08 Baso % (Auto) 1.0 % (0.2-1.0) 11/03/17 04:08 Neut # (Auto) 4.2 x10^3/uL (2.2-4.8) 11/03/17 04:08 Lymph # (Auto) 2.5 X10^3/uL (1.3-2.9) 11/03/17 04:08 [place] # (Auto) 0.9 x10^3/uL (0.3-0.8) H 11/03/17 04:08 Eos # (Auto) 0.3 x10^3/uL (0.0-0.2) H 11/03/17 04:08 Baso # (Auto) 0.1 X10^3/uL (0.0-0.1) 11/03/17 04:08 Absolute Nucleated RBC 0.1 /100WBC 11/03/17 04:08 INR Target Range - 11/01/17 18:04 INR 0.94 (0.8-1.3) 11/01/17 18:04 APTT 24.6 SECONDS (22.9-36.5) 11/01/17 18:04 PTT Comment - 11/01/17 18:04 D-Dimer < 100 ng/mL (0-400) 11/01/17 18:04 Sodium 142 mmol/L (136-145) 11/03/17 04:08 Corrected Sodium TNP 11/03/17 04:08 Potassium 4.9 mmol/L (3.5-5.1) 11/03/17 04:08 Chloride 107 mmol/L (98-107) 11/03/17 04:08 Carbon Dioxide 30.6 mmol/L (21-32) 11/03/17 04:08 BUN 10 mg/dL (7-18) 11/03/17 04:08 Creatinine 1.03 mg/dL (0.70-1.30) 11/03/17 04:08 Est GFR (MDRD) Af Amer > 60 (>60) 11/03/17 04:08 Est GFR (MDRD) Non-Af > 60 (>60) 11/03/17 04:08 Glucose 107 mg/dL (65-99) H 11/03/17 04:08 Calcium 8.7 mg/dL (8.5-10.1) 11/03/17 04:08 Corrected Calcium TNP 11/03/17 04:08 Magnesium 2.4 mg/dL (1.7-2.9) 11/02/17 04:19 Total Bilirubin 0.30 mg/dL (0.2-1.0) 11/03/17 04:08 AST 17 Units/L (15-37) 11/03/17 04:08 ALT 25 Units/L (12-78) 11/03/17 04:08 Alkaline Phosphatase 51 Units/L (46-116) 11/03/17 04:08 Creatine Kinase 93 Units/L (39-308) 11/02/17 16:20 CK-MB (CK-2) 1.6 ng/mL (0-4.0) 11/02/17 16:20 CK/CKMB % Calc 1.7 % (<4) 11/02/17 16:20 Troponin I < 0.02 ng/mL (0-1.5) 11/02/17 16:20 B-Natriuretic Peptide 60.5 pg/mL (0-79) 11/01/17 18:07 Total Protein 6.6 g/dL (6.4-8.2) 11/03/17 04:08 Albumin 3.4 g/dL (3.4-5.0) 11/03/17 04:08 Globulin 3.2 g/dL (2.5-4.5) 11/03/17 04:08 Albumin/Globulin Ratio 1.1 Ratio (1.1-2.1) 11/03/17 04:08 Triglycerides 136 mg/dL (0-150) 11/02/17 04:19 Cholesterol 101 mg/dL (0-200) 11/02/17 04:19 LDL Cholesterol, Calc 34 mg/dL (0-100) 11/02/17 04:19 HDL Cholesterol 40 mg/dL (40-60) 11/02/17 04:19 Cholesterol/HDL Ratio 2.5 (0.0-5.0) 11/02/17 04:19 Specimen Type Clean catch urine 11/02/17 05:00 Urine Color Yellow (YELLOW) 11/02/17 05:00 Urine Appearance Clear (CLEAR) 11/02/17 05:00 Urine pH 5.0 (5.0 - 8.0) 11/02/17 05:00 Ur Specific [place] 1.025 (1.000-1.030) 11/02/17 05:00 Urine Protein 1+ (NEGATIVE) 11/02/17 05:00 Urine Glucose (UA) 4+ (NEGATIVE) 11/02/17 05:00 Urine Ketones 1+ (NEGATIVE) 11/02/17 05:00 Urine Occult Blood Negative (NEGATIVE) 11/02/17 05:00 Urine Nitrite Negative (NEGATIVE) 11/02/17 05:00 Urine Bilirubin Negative (NEGATIVE) 11/02/17 05:00 Urine Urobilinogen Normal (NORMAL) 11/02/17 05:00 Ur Leukocyte Esterase Negative (NEGATIVE) 11/02/17 05:00 Urine RBC None seen /HPF (NONE SEEN) 11/02/17 05:00 Urine WBC 0-2 /HPF (NONE SEEN) 11/02/17 05:00 Ur Squamous Epith Cells Rare /HPF (NEGATIVE) 11/02/17 05:00 Amorphous Sediment Trace /HPF (NEGATIVE) 11/02/17 05:00 Urine Bacteria Negative /HPF (NEGATIVE) 11/02/17 05:00 Hyaline Casts Few /LPF (NEGATIVE) 11/02/17 05:00 Ur Culture Indicated? No/not indicated 11/02/17 05:00 Hospital Course: 67 WM ER ADMISSION AFTER PRESENTING WITH CO LEFT SIDE HEAD PAIN, STAHL WORSE OVER PAST WEEK WITH ONSET OF CHEST PAIN. PT STATES " I THINK ITS MY NERVES. NARENDRA BEEN REAL ANXIOUS ABOUT HEAD". PT HAS PMH OF COPD, HTN AND CAD. PT STATES STENT PLACEMENT 12/2016 AND HAS HAD CARDIAC EVALUATION AT [facility] IN THE LAST 3-[address] PT [address] HEAD IN ER WITHOUT ACUTE FINDINGS. PT ADMITTED R/O AMI, EVALUATION OF PAIN LEFT SIDE HEAD. CARDIAC ENZYMES AND EKGS WERE MONITORED. NO ACUTE FINDINGS. PAIN DID IMPROVE. PATIENT WAS DISCHARGED HOME TO BE FOLLOWED ON OP BASIS. - Discharge Plan Disposition: 01 HOME, SELF-CARE Condition: Stable - Follow ups/Referrals Follow ups/Referrals: NFD,None [Primary Care Provider] - 3 days - Instructions Instructions: Nonspecific Chest Pain, [id number], General Headache Without Cause, [id number] Additional Instructions: RESUME HOME MEDS REST, LIMIT STRESS FOLLOW UP WITH [facility] SCHEDULED RETURN TO ER IF CONDITION CHANGES OR WORSENS FOLLOW UP WITH DR ARAMBULA IN [facility] OFFICE IN 7-10 DAYS FOR HOSPITAL FOLLOW UP
== END 2017-11-03 17:20 | disposition home or self-care (01) ==
LOC: MED/SURG 17:23 → ER 17:23 → MED/SURG 22:15
PROVIDERS: ADMIT Internal Medicine; ATTEND Internal Medicine
DX: J44.9 Chronic obstructive pulmonary disease, unspecified; R53.1 Weakness; Z79.01 Long term (current) use of anticoagulants; I10 Essential (primary) hypertension; R94.31 Abnormal electrocardiogram [ECG] [EKG]; I25.10 Atherosclerotic heart disease of native coronary artery without angina pectoris; R07.2 Precordial pain; F41.8 Other specified anxiety disorders; R06.02 Shortness of breath; Z79.899 Other long term (current) drug therapy; R51 Headache
CPT/HCPCS: 36415; 70450; 70498; 71010; 71045; 80053; 80061; 81001; 82550; 82553; 83735; 83880; 84484; 85025; 85378; 85610; 85730; 93005; 93010; 93041; 94640; 94760; 96365; 96374; 99217; 99218; 99284; A4222; C9113; G0378; J2270; J7030; J7050; J7620

== ENCOUNTER 2018-01-09 15:10 | Observation (INO) ==
[2018-01-09 15:23] VITALS: BMI 22.1
[2018-01-09] MEDS ORDERED: DUONEB 0.5 MG/3 MG ONE (15:29)
--- NOTE | 2018-01-09 15:45 | DR.GENAD ---
HPI Time Seen Time Seen by Provider: 01/09/18 15:35 PCP Primary Care Physician: KYLE IN [place] HPI Comment HPI Comment: PATIENT HAVE PRODUCTIVE COUGH WITH YELLOW SPUTUM. GETTING WORSE. FALL. Complaint/Symptoms Chief Complaint Doctors Comments: INCREASING SOB AND GENERALIZE WEAKNESS TIMES 4 DAYS. Chief Complaint:: PT STATED HE HAS BEEN SHORT OF BREATH AND WEAK FOR 4 DAYS. PT HAS BEEN COUGHING ALOT ALSO Nurses notes reviewed Nurses Notes Review: Yes Source History Provided: Patient Mode of Arrival Mode of Arrival: Wheelchair Timing Onset of Chief Complaint: 01/05/18 Came on: Suddenly Duration Duration: Constant Duration: Days Location Location: [place] Severity Severity: Moderate Modifying Factors Worsens:: COUGHING Improves:: NONE. PMH PMH Past Medical History: Yes Past Medical History: COPD, Coronary Artery Disease, Hypertension and [place] Past Surgical History: Yes Surgical History: Angioplasty/Stents Family History History of Family Medical Conditions: No Social History Does patient currently use any type of tobacco product: No Have you used tobacco products in the last 12 months: No Type of Tobacco Use: None Does any household member use tobacco: No Alcohol Use: None Do you use any recreational Drugs:: No Lives With: Alone Lives Where: Home infectious screening In the last 2 months have you had wt loss of >10#?: NO Have you had fever, night sweats or hemotysis?: No Have you traveled outside the country in the last 6 months?: No Isolation: Standard ROS Review of Systems Constitutional: Weakness and Fatigue; negative Fever Eyes: No Symptoms Reported ENTM: Nose Congestion Respiratoy: Productive Cough and Wheezing Cardiovascular: Chest Pain Gastrointestinal/Abdominal: No Symptoms Reported Genitourinary: No Symptoms Reported Neurological: Weakness Musculoskeletal: Chest wall Integumentary: No Symptoms Reported Hematologic/Lymphatic: No Symptoms Reported Endocrine: No Symptoms Reported Psychiatric: No Symptoms Reported All Other Systems: Reviewed and Negative PE Vital Signs Vitals: Temperature 97.8 F Pulse Rate [Left] 85 Pulse Rate 73 Respiratory Rate 20 Blood Pressure [Left Arm] 140/70 Blood Pressure 145/79 O2 Sat by Pulse Oximetry 97 General Limitations: No Limitations General Appearance: Alert and In Distress Head Head Exam: Normal Inspection and Atraumatic Eyes Eye exam: Normal Appearance and PERRL; negative Scleral Icterus and Conjunctival Injection ENT ENT Exam: Normal External Ear Exam External Ear Exam: Normal External Inspection TM/Canal Exam: Bilateral: Bulging Throat Exam: Tonsillar Erythema and R Peritonsillar Mass; negative Tonsillomegaly and Tonsillar Exudate Neck Neck Exam: Normal Inspection and Trachea Midline; negative Tenderness, Meningismus and Lymphadenopathy Chest Chest Inspection: Symmetric Chest Wall Rise Respiratory Respiratory Exam: Respiratory Distress Respiratory Exam: Bilateral: Wheezing and Bilateral: Rhonchi, Upper: Wheezing and Lower: Wheezing and Lower: Rhonchi Cardiovascular Cardiovascular Exam: Regular Rate and Normal Rhythm Abdominal Exam Abdominal Exam: Normal Inspection Extremities Extremities Exam: Normal Inspection Back Back Exam: Normal Inspection Neurologic Neurological Exam: Alert and Oriented X3; negative Motor Sensory Deficit Psychiatric Psychiatric Exam: Normal Affect and Anxious Skin Skin Exam: Intact MDM Differential Diagnosis Differential Diagnosis: PNEUMONIA, BRONCHITIS, SINISITIS COURSE Treatment Treatment: SEE ORDERS. Education/Counseling Education/Counseling: Patient Educated On: Diagnosis and Needs for Follow Up ROR Labs Reviewed Laboratory Results Reviewed?: Yes Result Diagrams: 01/13/18 04:23 01/13/18 04:23 Laboratory: 01/09/18 16:13 Blood Blood Culture - Final 01/09/18 15:36 Sputum - Expectorated Sputum Sputum Culture - Final Acinetobacter Baumanii/Haemoly 01/09/18 15:36 Sputum - Expectorated Sputum - Final 01/09/18 15:38 Blood Blood Culture - Final WBC 9.4 X10^3/uL (3.6-10.0) 01/13/18 04:23 RBC 4.12 X10^6/uL (4.7-6.0) L 01/13/18 04:23 Hgb 12.7 g/dL (13.5-18.0) L 01/13/18 04:23 Hct 37.3 % (42.0-54.0) L 01/13/18 04:23 MCV 90.5 fL (80.0-100.0) 01/13/18 04:23 MCH 30.8 pg (27.0-34.0) 01/13/18 04:23 MCHC 34.1 g/dL (33.0-35.0) 01/13/18 04:23 RDW 13.6 % (11.6-16.5) 01/13/18 04:23 Plt Count 279 X10^3/uL (150.0-450.0) 01/13/18 04:23 MPV 7.6 fL (7.4-11.0) 01/13/18 04:23 Neut % (Auto) 83.6 % (42.0-75.0) H 01/13/18 04:23 Lymph % (Auto) 9.2 % (21.0-51.0) L 01/13/18 04:23 [place] % (Auto) 7.2 % (0.0-13.0) 01/13/18 04:23 Eos % (Auto) 0.0 % (0.9-2.9) L 01/13/18 04:23 Baso % (Auto) 0 % (0.2-1.0) L 01/13/18 04:23 Neut # (Auto) 7.8 x10^3/uL (2.2-4.8) H 01/13/18 04:23 Lymph # (Auto) 0.9 X10^3/uL (1.3-2.9) L 01/13/18 04:23 [place] # (Auto) 0.7 x10^3/uL (0.3-0.8) 01/13/18 04:23 Eos # (Auto) 0.0 x10^3/uL (0.0-0.2) 01/13/18 04:23 Baso # (Auto) 0.0 X10^3/uL (0.0-0.1) 01/13/18 04:23 Absolute Nucleated RBC 0.0 /100WBC 01/13/18 04:23 Sample Site Rr 01/09/18 18:33 ABG pH 7.450 (7.35-7.45) 01/09/18 18:33 ABG pCO2 41.0 mmHg (35.0-45.0) 01/09/18 18:33 ABG pO2 99.0 mmHg (80.0-100.0) 01/09/18 18:33 ABG HCO3 28.5 mmol/L (22-26) H 01/09/18 18:33 ABG O2 Saturation 98.0 % (90-100) 01/09/18 18:33 ABG Base Excess 4.1 mmol/L (-2.0-2.0) H 01/09/18 18:33 Patrick Test Pos 01/09/18 18:33 A-a Gradient 49.0 mmHg 01/09/18 18:33 FiO2 28 01/09/18 18:33 Blood Gas Comments Pt oren well elj 01/09/18 18:33 Sodium 143 mmol/L (136-145) 01/13/18 04:23 Corrected Sodium 144 mmol/L (136-145) 01/13/18 04:23 Potassium 4.7 mmol/L (3.5-5.1) 01/13/18 04:23 Chloride 105 mmol/L (98-107) 01/13/18 04:23 Carbon Dioxide 33.6 mmol/L (21-32) H 01/13/18 04:23 BUN 10 mg/dL (7-18) 01/13/18 04:23 Creatinine 0.92 mg/dL (0.70-1.30) 01/13/18 04:23 Est GFR (MDRD) Af Amer > 60 (>60) 01/13/18 04:23 Est GFR (MDRD) Non-Af > 60 (>60) 01/13/18 04:23 Glucose 128 mg/dL (65-99) H 01/13/18 04:23 Lactic Acid 1.3 mmol/L (0.4-2.0) 01/09/18 16:13 Calcium 8.2 mg/dL (8.5-10.1) L 01/13/18 04:23 Corrected Calcium 9.3 mg/dL (8.5-10.1) 01/13/18 04:23 Magnesium 2.4 mg/dL (1.7-2.9) 01/10/18 05:22 Total Bilirubin 0.20 mg/dL (0.2-1.0) 01/13/18 04:23 AST 23 Units/L (15-37) 01/13/18 04:23 ALT 37 Units/L (12-78) 01/13/18 04:23 Alkaline Phosphatase 50 Units/L (46-116) 01/13/18 04:23 Creatine Kinase 162 Units/L (39-308) 01/10/18 05:22 CK-MB (CK-2) 2.1 ng/mL (0-4.0) 01/10/18 05:22 CK/CKMB % Calc 1.3 % (<4) 01/10/18 05:22 Troponin I < 0.02 ng/mL (0-1.5) 01/10/18 05:22 B-Natriuretic Peptide 97.0 pg/mL (0-79) H 01/09/18 15:38 Total Protein 6.4 g/dL (6.4-8.2) 01/13/18 04:23 Albumin 2.6 g/dL (3.4-5.0) L 01/13/18 04:23 Globulin 3.8 g/dL (2.5-4.5) 01/13/18 04:23 Albumin/Globulin Ratio 0.7 Ratio (1.1-2.1) L 01/13/18 04:23 Triglycerides 58 mg/dL (0-150) 01/10/18 05:22 Cholesterol 99 mg/dL (0-200) 01/10/18 05:22 LDL Cholesterol, Calc 54 mg/dL (0-100) 01/10/18 05:22 HDL Cholesterol 33 mg/dL (40-60) L 01/10/18 05:22 Cholesterol/HDL Ratio 3.0 (0.0-5.0) 01/10/18 05:22 Specimen Type Random urine 01/09/18 19:38 Urine Color Yellow (YELLOW) 01/09/18 19:38 Urine Appearance Slightly hazy (CLEAR) 01/09/18 19:38 Urine pH 5.0 (5.0 - 8.0) 01/09/18 19:38 Ur Specific [place] 1.025 (1.000-1.030) 01/09/18 19:38 Urine Protein 3+ (NEGATIVE) 01/09/18 19:38 Urine Glucose (UA) Negative (NEGATIVE) 01/09/18 19:38 Urine Ketones 2+ (NEGATIVE) 01/09/18 19:38 Urine Occult Blood 2+ (NEGATIVE) 01/09/18 19:38 Urine Nitrite Negative (NEGATIVE) 01/09/18 19:38 Urine Bilirubin Negative (NEGATIVE) 01/09/18 19:38 Urine Urobilinogen Normal (NORMAL) 01/09/18 19:38 Ur Leukocyte Esterase Negative (NEGATIVE) 01/09/18 19:38 Urine RBC 3-5 /HPF (NONE SEEN) 01/09/18 19:38 Urine WBC 3-5 /HPF (NONE SEEN) 01/09/18 19:38 Ur Squamous Epith Cells Rare /HPF (NEGATIVE) 01/09/18 19:38 Urine Bacteria Trace /HPF (NEGATIVE) 01/09/18 19:38 Urine Mucus Few /HPF (NEGATIVE) 01/09/18 19:38 Ur Culture Indicated? No/not indicated 01/09/18 19:38 XRAY XRAY Interpreted by: Radiologist XRAY Findings: REPORT NOTED. Instructions Instructions: Fall Prevention in the Home, [id number] Chronic Obstructive Pulmonary Disease Exacerbation Chronic Obstructive Pulmonary Disease, Omzv-ah-[id number] Hypertension, Iahy-fr-[id number] Acute Bronchitis, Adult Forms: Patient Portal
[2018-01-09] MEDS ORDERED: DUONEB 0.5 MG/3 MG NEB ONE (15:49)
[2018-01-09 16:05] LABS: BASOPHILS # (AUTO) 0.1 X10^3/uL (0.0-0.1); BASOPHILS % (AUTO) 0.6 % (0.2-1.0); EOSINOPHILS # (AUTO) 0.2 x10^3/uL (0.0-0.2); EOSINOPHILS % (AUTO) 2.2 % (0.9-2.9); HEMATOCRIT 43.5 % (42.0-54.0); HEMOGLOBIN 15.3 g/dL (13.5-18.0); LYMPHOCYTES # (AUTO) 1.5 X10^3/uL (1.3-2.9); MEAN CORPUSCULAR HEMOGLOBIN 31.3 pg (27.0-34.0); MEAN CORPUSCULAR HGB CONC 35.1 g/dL (33.0-35.0); MEAN CORPUSCULAR VOLUME 89.3 fL (80.0-100.0); MEAN PLATELET VOLUME 7.7 fL (7.4-11.0); MONOCYTES # (AUTO) 1.5 x10^3/uL (0.3-0.8); MONOCYTES % (AUTO) 17.8 % (0.0-13.0); NEUTROPHILS # (AUTO) 5.4 x10^3/uL (2.2-4.8); NEUTROPHILS % (AUTO) 62.4 % (42.0-75.0); PLATELET COUNT 208 X10^3/uL (150.0-450.0); RED BLOOD COUNT 4.88 X10^6/uL (4.7-6.0); RED CELL DISTRIBUTION WIDTH 13.8 % (11.6-16.5); WHITE BLOOD COUNT 8.6 X10^3/uL (3.6-10.0)
[2018-01-09 16:23] LABS: BLOOD UREA NITROGEN 12 mg/dL (7-18); CALCIUM 8.6 mg/dL (8.5-10.1); CHLORIDE 96 mmol/L (98-107); COR NA(FOR HYPERGLY) 135 mmol/L (136-145); SODIUM 134 mmol/L (136-145); TROPONIN I < 0.02 ng/mL (0-1.5); eGFR NON BLACK RACES > 60 (>60)
[2018-01-09 16:27] LABS: ALANINE AMINOTRANSFERASE 29 Units/L (12-78); ALBUMIN 3.3 g/dL (3.4-5.0); ALKALINE PHOSPHATASE 63 Units/L (46-116); ASPARTATE AMINO TRANSFERASE 30 Units/L (15-37); CKMB % 0.9 % (<4); COR CA(FOR HYPOALB) 9.2 mg/dL (8.5-10.1); CREATINE KINASE 212 Units/L (39-308); CREATINE KINASE MB 1.8 ng/mL (0-4.0); TOTAL PROTEIN 8.1 g/dL (6.4-8.2)
[2018-01-09 16:30] LABS: LACTIC ACID 1.3 mmol/L (0.4-2.0)
[2018-01-09 18:47] LABS: ABG ALLEN TEST POS; ABG BASE EXCESS 4.1 mmol/L (-2.0-2.0); ABG HCO3 28.5 mmol/L (22-26); FRACTIONATED INSPIRED OXYGEN 28
[2018-01-09 19:54] LABS: APPEARANCE,URINE SLIGHTLY HAZY (CLEAR); BILIRUBIN,URINE NEGATIVE (NEGATIVE); BLOOD/HEMOGLOBIN,URINE 2+ (NEGATIVE); COLOR,URINE YELLOW (YELLOW); GLUCOSE, URINE NEGATIVE (NEGATIVE); KETONES,URINE 2+ (NEGATIVE); LEUKOCYTE ESTERASE ,URINE NEGATIVE (NEGATIVE); NITRITES,URINE NEGATIVE (NEGATIVE); PROTEIN,URINE 3+ (NEGATIVE); UROBILINOGEN,URINE NORMAL (NORMAL)
[2018-01-09 20:00] LABS: BACTERIA,URINE TRACE /HPF (NEGATIVE); MUCUS,URINE FEW /HPF (NEGATIVE); SQUAMOUS EPITHELIAL CELL,UR RARE /HPF (NEGATIVE)
[2018-01-09] MEDS ORDERED: SOLU-Medrol 125 MG VIAL IVP ONE (20:20)
[2018-01-09] MEDS ORDERED: PREVNAR 13 IM ONE (20:59)
[2018-01-09] MEDS ORDERED: FLUVIRIN IM ONE (20:59)
[2018-01-09] MEDS ORDERED: DUONEB 0.5 MG/3 MG NEB SCH (21:00)
[2018-01-09] MEDS ORDERED: POTASSIUM CHL 60 MEQ/NS 0.45% 500 ML IV PRN (21:44)
[2018-01-09] MEDS ORDERED: K-DUR TAB 20 MEQ PO PRN (21:44)
[2018-01-09] MEDS ORDERED: MICRO K EXTEN CAP 10 MEQ PO PRN (21:44)
[2018-01-09] MEDS ORDERED: K-RIDER 10 MEQ/NS 100 ML 10 MEQ/100 ML BAG IV PRN (21:44)
[2018-01-09] MEDS ORDERED: POTASSIUM CHL 40 MEQ/NS 0.45% 500 ML IV PRN (21:44)
[2018-01-09] MEDS ORDERED: KLOR-CON PO PRN (21:44)
[2018-01-09] MEDS ORDERED: POTASSIUM CHLORIDE LIQ 20 MEQ UDC PO PRN (21:44)
[2018-01-09] MEDS: NS 1000 ML 1,000 ML IV SCH (21:48)
[2018-01-09] MEDS: LEVAQUIN PREMIX IV 750 MG 750 MG/150 ML BAG IV SCH (21:49)
[2018-01-09] MEDS: FORTAZ or TAZICEF VIAL INJ IVP SCH (23:10)
[2018-01-10] LABS: CKMB % 0.9 % (<4); CREATINE KINASE 194 Units/L (39-308); CREATINE KINASE MB 1.7 ng/mL (0-4.0); TROPONIN I < 0.02 ng/mL (0-1.5)
[2018-01-10] MEDS: DUONEB 0.5 MG/3 MG NEB SCH ×5 (01:40→21:30)
[2018-01-10] MEDS: FORTAZ or TAZICEF VIAL INJ IVP SCH ×3 (05:20→21:00)
[2018-01-10 06:17] LABS: BASOPHILS % (AUTO) 0.1 % (0.2-1.0); EOSINOPHILS % (AUTO) 0.1 % (0.9-2.9); HEMATOCRIT 40.8 % (42.0-54.0); HEMOGLOBIN 14.1 g/dL (13.5-18.0); LYMPHOCYTES # (AUTO) 0.4 X10^3/uL (1.3-2.9); LYMPHOCYTES % (AUTO) 7.2 % (21.0-51.0); MEAN CORPUSCULAR HEMOGLOBIN 31.1 pg (27.0-34.0); MEAN CORPUSCULAR HGB CONC 34.6 g/dL (33.0-35.0); MEAN CORPUSCULAR VOLUME 89.8 fL (80.0-100.0); MEAN PLATELET VOLUME 7.9 fL (7.4-11.0); MONOCYTES # (AUTO) 0.2 x10^3/uL (0.3-0.8); MONOCYTES % (AUTO) 2.8 % (0.0-13.0); NEUTROPHILS # (AUTO) 4.9 x10^3/uL (2.2-4.8); NEUTROPHILS % (AUTO) 89.8 % (42.0-75.0); PLATELET COUNT 191 X10^3/uL (150.0-450.0); RED BLOOD COUNT 4.55 X10^6/uL (4.7-6.0); RED CELL DISTRIBUTION WIDTH 13.3 % (11.6-16.5); WHITE BLOOD COUNT 5.4 X10^3/uL (3.6-10.0)
[2018-01-10 06:40] LABS: ALANINE AMINOTRANSFERASE 37 Units/L (12-78); ALBUMIN 3.2 g/dL (3.4-5.0); ALKALINE PHOSPHATASE 62 Units/L (46-116); ASPARTATE AMINO TRANSFERASE 39 Units/L (15-37); BLOOD UREA NITROGEN 10 mg/dL (7-18); CALCIUM 8.5 mg/dL (8.5-10.1); CARBON DIOXIDE 29.2 mmol/L (21-32); CHLORIDE 100 mmol/L (98-107); CHOLESTEROL 99 mg/dL (0-200); COR CA(FOR HYPOALB) 9.1 mg/dL (8.5-10.1); COR NA(FOR HYPERGLY) 140 mmol/L (136-145); CREATININE 0.94 mg/dL (0.70-1.30); HDL CHOLESTEROL 33 mg/dL (40-60); MAGNESIUM 2.4 mg/dL (1.7-2.9); SODIUM 139 mmol/L (136-145); TRIGLYCERIDES 58 mg/dL (0-150); eGFR NON BLACK RACES > 60 (>60)
[2018-01-10 06:46] LABS: CKMB % 1.3 % (<4); CREATINE KINASE 162 Units/L (39-308); CREATINE KINASE MB 2.1 ng/mL (0-4.0); TROPONIN I < 0.02 ng/mL (0-1.5)
[2018-01-10] MEDS ORDERED: SOLU-Medrol 40 MG VIAL IVP SCH (09:00)
[2018-01-10] MEDS: PLAVIX PO SCH (09:34)
[2018-01-10] MEDS: LOPRESSOR TAB 50 MG PO SCH ×2 (09:34→16:57)
[2018-01-10] MEDS: LIPITOR TAB 40 MG PO SCH (09:35)
[2018-01-10] MEDS: ASPIRIN EC 81 MG PO SCH (09:35)
[2018-01-10] MEDS: NS 1000 ML 1,000 ML IV SCH ×3 (12:30→23:36)
[2018-01-10] MEDS ORDERED: NS 100 ML IV + SPIKE MINIBAG* 100 ML IV ONE (13:12)
[2018-01-10] MEDS: SOLU-Medrol 125 MG VIAL IVP SCH ×2 (13:22→21:00)
[2018-01-10] MEDS: PROTONIX INJ 40 MG VIAL IVP SCH (13:22)
[2018-01-10] MEDS ORDERED: FLUVIRIN IM ONE (14:24)
--- NOTE | 2018-01-10 14:39 | DR.H&P ---
H&P - History & Physical for Day of: H&P Date: 01/09/18 - Chief Complaint Chief Complaint: WEAKNESS, "VIRUS IN MY CHEST" - History of Present Illness History of Present Illness: PT IS 67 WM ER ADMISSION AFTER PRESENTING WITH CO SOB, WEAKNESS "VIRUS IN CHEST" FOR SEVERAL DAYS, PT STATES HE THOUGHT IT WOULD IMPROVE ON ITS OWN. PT HAS PMH OF HTN, COPD, CAD, OA. PT WAS EVALUATION IN ER, WBC 8.6. PT STARTED ON IV ATBX, SPUTUM CULTURE. ADMITTED FOR SERIAL CE AND TREATMENT OF ACUTE BRONCHITIS WITH COPD - Past Medical History Past Medical History: [place], Coronary Artery Disease, Hypertension, COPD - Past Surgical History Surgical History: Angioplasty/Stents - Social History Does patient currently use any type of tobacco product: No Have you used tobacco products in the last 12 months: No Type of Tobacco Use: Smokeless Does any household member use tobacco: No Alcohol Use: None Drug Use: Prescription Drugs - Medications Home Medications: No Known Drug Allergies Allergy (Verified 01/09/18 15:19) - Review of Systems Constitutional: Chills, Sweats, Weakness, Malaise Eyes: No Symptoms Reported ENT: No Symptoms Reported Respiratory: Cough, Shortness of Breath, Sputum, Wheezing Cardiovascular: No Symptoms Reported. denies: Edema Gastrointestinal: No Symptoms Reported Genitourinary: No Symptoms Reported Musculoskeletal: Back Pain Skin: No Symptoms Reported Neurological: No Symptoms Reported - Physical Exam Vital Signs: Temperature 97.5 F Pulse Rate [Left] 80 Pulse Rate 74 Respiratory Rate 20 Blood Pressure [Left Arm] 135/76 Blood Pressure 145/79 O2 Sat by Pulse Oximetry 97 Oriented: Normal Eyes: Normal Ear: Normal Nose: Normal Throat: Normal Respiratory: Rhonchi Throughout, Wheezes Throughout Cardiovascular: Normal. negative: Edema : Normal Auscultation: Bowel Sounds: Normal Palpation: Normal Tenderness: Normal Skin: Decreased Turgur Musculoskeletal: Back:Lumbar Psychiatric: Anxiety Affect: Anxious Speech Pattern: Clear, Appropriate - Assessment/Plan (1) Acute bronchitis Status: Acute Plan: ADMIT, SERIAL CE AND EKG. ADMISSION CXR, RESP CONSULT, IV ATBX. JET NEBS, SUPPLEMENTAL O2. VERIFY HOME MEDS, BP CONTROL (2) COPD (chronic obstructive pulmonary disease) Status: Acute (3) CAD (coronary artery disease) Status: Acute - Allergies Allergies/Adverse Reactions: Allergies Allergy/AdvReac Type Severity Reaction Status Date / Time No Known Drug Allergies Allergy Verified 01/09/18 15:19
--- NOTE | 2018-01-10 14:43 | PCM.PROG ---
Progress Note - Progress Note for Day of Date of Exam: 01/10/18 - Subjective Subjective: 67 WM ER ADMISSION ON 01/09 WITH CO WEAKNESS, SOB, CHEST CONGESTION. PT HAD SPUTUM CULTURE COLLECTED ON ADMISSION. PT CURRENTLY ON IV ATBX, SOLU MEROL, JET NEBS AND SUPPLEMENTAL O2 PRN. PT ON HOME MEDS FOR CAD, HTN. PT DENIES CP THIS AM, CONTINUES WITH CENTRAL RHONCHI AND WHEEZING. - - Past Medical Family Social History Past Med/Fam/Surg Hx: No changes since H&P Allergies: Allergies No Known Drug Allergies Allergy (Verified 01/09/18 15:19) - Review of Systems ROS: No change since H&P - Vital Signs and I&O's Vital Signs: Temperature 97.5 F Pulse Rate [Left] 80 Pulse Rate 74 Respiratory Rate 20 Blood Pressure [Left Arm] 135/76 Blood Pressure 145/79 O2 Sat by Pulse Oximetry 97 Intake and Output: Intake & Output 01/08/18 01/09/18 01/10/18 01/11/18 11:59 11:59 11:59 11:59 Intake Total 1091 / 1091 Balance 1091 / 1091 - Physical Exam Oriented: Normal Eyes: Normal Ear: Normal Nose: Normal Throat: Normal Respiratory: Diminished, Rhonchi Cardiovascular: Normal. negative: Edema : Normal Auscultation: Bowel Sounds: Normal Tenderness: Normal Skin: Decreased Turgur Musculoskeletal: Back:Lumbar Psychiatric: Anxiety Affect: Anxious Speech Pattern: Clear, Appropriate - Laboratory and Diagnostics Result Diagrams: 01/10/18 05:22 01/10/18 05:22 Labs: 01/09/18 15:36 Sputum - Expectorated Sputum Sputum Culture - Preliminary 01/09/18 15:36 Sputum - Expectorated Sputum - Final Laboratory WBC 5.4 X10^3/uL (3.6-10.0) 01/10/18 05:22 RBC 4.55 X10^6/uL (4.7-6.0) L 01/10/18 05:22 Hgb 14.1 g/dL (13.5-18.0) 01/10/18 05:22 Hct 40.8 % (42.0-54.0) L 01/10/18 05:22 MCV 89.8 fL (80.0-100.0) 01/10/18 05:22 MCH 31.1 pg (27.0-34.0) 01/10/18 05:22 MCHC 34.6 g/dL (33.0-35.0) 01/10/18 05:22 RDW 13.3 % (11.6-16.5) 01/10/18 05:22 Plt Count 191 X10^3/uL (150.0-450.0) 01/10/18 05:22 MPV 7.9 fL (7.4-11.0) 01/10/18 05:22 Neut % (Auto) 89.8 % (42.0-75.0) H 01/10/18 05:22 Lymph % (Auto) 7.2 % (21.0-51.0) L 01/10/18 05:22 [place] % (Auto) 2.8 % (0.0-13.0) 01/10/18 05:22 Eos % (Auto) 0.1 % (0.9-2.9) L 01/10/18 05:22 Baso % (Auto) 0.1 % (0.2-1.0) L 01/10/18 05:22 Neut # (Auto) 4.9 x10^3/uL (2.2-4.8) H 01/10/18 05:22 Lymph # (Auto) 0.4 X10^3/uL (1.3-2.9) L 01/10/18 05:22 [place] # (Auto) 0.2 x10^3/uL (0.3-0.8) L 01/10/18 05:22 Eos # (Auto) 0.0 x10^3/uL (0.0-0.2) 01/10/18 05:22 Baso # (Auto) 0.0 X10^3/uL (0.0-0.1) 01/10/18 05:22 Absolute Nucleated RBC 0.0 /100WBC 01/10/18 05:22 Sample Site Rr 01/09/18 18:33 ABG pH 7.450 (7.35-7.45) 01/09/18 18:33 ABG pCO2 41.0 mmHg (35.0-45.0) 01/09/18 18:33 ABG pO2 99.0 mmHg (80.0-100.0) 01/09/18 18:33 ABG HCO3 28.5 mmol/L (22-26) H 01/09/18 18:33 ABG O2 Saturation 98.0 % (90-100) 01/09/18 18:33 ABG Base Excess 4.1 mmol/L (-2.0-2.0) H 01/09/18 18:33 Patrick Test Pos 01/09/18 18:33 A-a Gradient 49.0 mmHg 01/09/18 18:33 FiO2 28 01/09/18 18:33 Blood Gas Comments Pt oren well elj 01/09/18 18:33 Sodium 139 mmol/L (136-145) 01/10/18 05:22 Corrected Sodium 140 mmol/L (136-145) 01/10/18 05:22 Potassium 5.1 mmol/L (3.5-5.1) 01/10/18 05:22 Chloride 100 mmol/L (98-107) 01/10/18 05:22 Carbon Dioxide 29.2 mmol/L (21-32) 01/10/18 05:22 BUN 10 mg/dL (7-18) 01/10/18 05:22 Creatinine 0.94 mg/dL (0.70-1.30) 01/10/18 05:22 Est GFR (MDRD) Af Amer > 60 (>60) 01/10/18 05:22 Est GFR (MDRD) Non-Af > 60 (>60) 01/10/18 05:22 Glucose 150 mg/dL (65-99) H 01/10/18 05:22 Lactic Acid 1.3 mmol/L (0.4-2.0) 01/09/18 16:13 Calcium 8.5 mg/dL (8.5-10.1) 01/10/18 05:22 Corrected Calcium 9.1 mg/dL (8.5-10.1) 01/10/18 05:22 Magnesium 2.4 mg/dL (1.7-2.9) 01/10/18 05:22 Total Bilirubin 0.40 mg/dL (0.2-1.0) 01/10/18 05:22 AST 39 Units/L (15-37) H 01/10/18 05:22 ALT 37 Units/L (12-78) 01/10/18 05:22 Alkaline Phosphatase 62 Units/L (46-116) 01/10/18 05:22 Creatine Kinase 162 Units/L (39-308) 01/10/18 05:22 CK-MB (CK-2) 2.1 ng/mL (0-4.0) 01/10/18 05:22 CK/CKMB % Calc 1.3 % (<4) 01/10/18 05:22 Troponin I < 0.02 ng/mL (0-1.5) 01/10/18 05:22 B-Natriuretic Peptide 97.0 pg/mL (0-79) H 01/09/18 15:38 Total Protein 7.0 g/dL (6.4-8.2) 01/10/18 05:22 Albumin 3.2 g/dL (3.4-5.0) L 01/10/18 05:22 Globulin 3.8 g/dL (2.5-4.5) 01/10/18 05:22 Albumin/Globulin Ratio 0.8 Ratio (1.1-2.1) L 01/10/18 05:22 Triglycerides 58 mg/dL (0-150) 01/10/18 05:22 Cholesterol 99 mg/dL (0-200) 01/10/18 05:22 LDL Cholesterol, Calc 54 mg/dL (0-100) 01/10/18 05:22 HDL Cholesterol 33 mg/dL (40-60) L 01/10/18 05:22 Cholesterol/HDL Ratio 3.0 (0.0-5.0) 01/10/18 05:22 Specimen Type Random urine 01/09/18 19:38 Urine Color Yellow (YELLOW) 01/09/18 19:38 Urine Appearance Slightly hazy (CLEAR) 01/09/18 19:38 Urine pH 5.0 (5.0 - 8.0) 01/09/18 19:38 Ur Specific [place] 1.025 (1.000-1.030) 01/09/18 19:38 Urine Protein 3+ (NEGATIVE) 01/09/18 19:38 Urine Glucose (UA) Negative (NEGATIVE) 01/09/18 19:38 Urine Ketones 2+ (NEGATIVE) 01/09/18 19:38 Urine Occult Blood 2+ (NEGATIVE) 01/09/18 19:38 Urine Nitrite Negative (NEGATIVE) 10/25/18 19:38 Urine Bilirubin Negative (NEGATIVE) 01/09/18 19:38 Urine Urobilinogen Normal (NORMAL) 01/09/18 19:38 Ur Leukocyte Esterase Negative (NEGATIVE) 01/09/18 19:38 Urine RBC 3-5 /HPF (NONE SEEN) 01/09/18 19:38 Urine WBC 3-5 /HPF (NONE SEEN) 01/09/18 19:38 Ur Squamous Epith Cells Rare /HPF (NEGATIVE) 01/09/18 19:38 Urine Bacteria Trace /HPF (NEGATIVE) 01/09/18 19:38 Urine Mucus Few /HPF (NEGATIVE) 01/09/18 19:38 Ur Culture Indicated? No/not indicated 01/09/18 19:38 - Plan (1) Acute bronchitis Status: Acute Plan: SERIAL CE AND EKG REVIEWED WITH PT, CONTINUE PLAVIX, STATIN AND BP CONTROL. AM CXR, RESP CONSULT, IV ATBX. JET NEBS, SUPPLEMENTAL O2. VERIFY HOME MEDS, BP CONTROL (2) COPD (chronic obstructive pulmonary disease) Status: Acute (3) CAD (coronary artery disease) Status: Acute
[2018-01-10] MEDS: LEVAQUIN PREMIX IV 750 MG 750 MG/150 ML BAG IV SCH (20:49)
[2018-01-10] MEDS: RESTORIL CAP 15 MG PO PRN (20:49)
[2018-01-10] MEDS: PULMICORT NEB TX 0.5 MG NEB SCH (21:30)
[2018-01-11] MEDS: DUONEB 0.5 MG/3 MG NEB SCH ×6 (02:02→21:40)
[2018-01-11 05:19] LABS: ALANINE AMINOTRANSFERASE 45 Units/L (12-78); ALBUMIN 3.1 g/dL (3.4-5.0); ALKALINE PHOSPHATASE 59 Units/L (46-116); ASPARTATE AMINO TRANSFERASE 37 Units/L (15-37); BLOOD UREA NITROGEN 11 mg/dL (7-18); CALCIUM 9.1 mg/dL (8.5-10.1); CARBON DIOXIDE 29.9 mmol/L (21-32); CHLORIDE 105 mmol/L (98-107); COR CA(FOR HYPOALB) 9.8 mg/dL (8.5-10.1); COR NA(FOR HYPERGLY) 143 mmol/L (136-145); CREATININE 1.04 mg/dL (0.70-1.30); SODIUM 142 mmol/L (136-145); TOTAL PROTEIN 7.5 g/dL (6.4-8.2); eGFR NON BLACK RACES > 60 (>60)
[2018-01-11] MEDS: FORTAZ or TAZICEF VIAL INJ IVP SCH ×3 (05:21→21:09)
[2018-01-11] MEDS: SOLU-Medrol 125 MG VIAL IVP SCH ×3 (05:26→21:09)
[2018-01-11 05:28] LABS: BASOPHILS % (AUTO) 0.1 % (0.2-1.0); LYMPHOCYTES # (AUTO) 0.9 X10^3/uL (1.3-2.9); LYMPHOCYTES % (AUTO) 7.8 % (21.0-51.0); MEAN CORPUSCULAR HEMOGLOBIN 30.7 pg (27.0-34.0); MEAN CORPUSCULAR HGB CONC 34.2 g/dL (33.0-35.0); MEAN CORPUSCULAR VOLUME 89.8 fL (80.0-100.0); MONOCYTES % (AUTO) 8.6 % (0.0-13.0); NEUTROPHILS # (AUTO) 10.1 x10^3/uL (2.2-4.8); NEUTROPHILS % (AUTO) 83.5 % (42.0-75.0); PLATELET COUNT 250 X10^3/uL (150.0-450.0); RED BLOOD COUNT 4.57 X10^6/uL (4.7-6.0); RED CELL DISTRIBUTION WIDTH 13.5 % (11.6-16.5); WHITE BLOOD COUNT 12.1 X10^3/uL (3.6-10.0)
[2018-01-11] MEDS: PULMICORT NEB TX 0.5 MG NEB SCH ×2 (08:26→21:40)
[2018-01-11] MEDS: PROTONIX INJ 40 MG VIAL IVP SCH (09:30)
[2018-01-11] MEDS: LIPITOR TAB 40 MG PO SCH (09:31)
[2018-01-11] MEDS: LOPRESSOR TAB 50 MG PO SCH ×2 (09:31→17:01)
[2018-01-11] MEDS: ASPIRIN EC 81 MG PO SCH (09:31)
[2018-01-11] MEDS: PLAVIX PO SCH (09:32)
[2018-01-11] MEDS: LEVAQUIN PREMIX IV 750 MG 750 MG/150 ML BAG IV SCH (20:09)
[2018-01-11] MEDS: RESTORIL CAP 15 MG PO PRN (20:10)
[2018-01-12] MEDS: NS 1000 ML 1,000 ML IV SCH (01:31)
[2018-01-12] MEDS: DUONEB 0.5 MG/3 MG NEB SCH ×8 (01:34→20:29)
[2018-01-12 05:29] LABS: BASOPHILS % (AUTO) 0.1 % (0.2-1.0); HEMOGLOBIN 12.6 g/dL (13.5-18.0); LYMPHOCYTES # (AUTO) 0.8 X10^3/uL (1.3-2.9); LYMPHOCYTES % (AUTO) 7.1 % (21.0-51.0); MEAN CORPUSCULAR HEMOGLOBIN 30.7 pg (27.0-34.0); MEAN CORPUSCULAR VOLUME 90.3 fL (80.0-100.0); MONOCYTES # (AUTO) 0.9 x10^3/uL (0.3-0.8); MONOCYTES % (AUTO) 7.3 % (0.0-13.0); NEUTROPHILS % (AUTO) 85.5 % (42.0-75.0); PLATELET COUNT 268 X10^3/uL (150.0-450.0); RED BLOOD COUNT 4.09 X10^6/uL (4.7-6.0); RED CELL DISTRIBUTION WIDTH 13.8 % (11.6-16.5); WHITE BLOOD COUNT 11.7 X10^3/uL (3.6-10.0)
[2018-01-12 05:33] LABS: ALANINE AMINOTRANSFERASE 40 Units/L (12-78); ALBUMIN 2.8 g/dL (3.4-5.0); ALKALINE PHOSPHATASE 52 Units/L (46-116); ASPARTATE AMINO TRANSFERASE 28 Units/L (15-37); BLOOD UREA NITROGEN 14 mg/dL (7-18); CALCIUM 8.4 mg/dL (8.5-10.1); CARBON DIOXIDE 32.3 mmol/L (21-32); CHLORIDE 105 mmol/L (98-107); COR CA(FOR HYPOALB) 9.4 mg/dL (8.5-10.1); COR NA(FOR HYPERGLY) 143 mmol/L (136-145); CREATININE 0.95 mg/dL (0.70-1.30); SODIUM 142 mmol/L (136-145); TOTAL PROTEIN 6.6 g/dL (6.4-8.2); eGFR NON BLACK RACES > 60 (>60)
[2018-01-12] MEDS: FORTAZ or TAZICEF VIAL INJ IVP SCH ×3 (05:34→23:32)
[2018-01-12] MEDS: SOLU-Medrol 125 MG VIAL IVP SCH ×3 (05:35→23:00)
[2018-01-12] MEDS ORDERED: MILK OF MAGNESIA PO PRN (07:10)
[2018-01-12] MEDS ORDERED: COLACE CAP 100 MG PO PRN (07:10)
[2018-01-12] MEDS: PULMICORT NEB TX 0.5 MG NEB SCH ×2 (08:04→20:29)
[2018-01-12] MEDS: LOPRESSOR TAB 50 MG PO SCH ×2 (08:18→17:56)
[2018-01-12] MEDS: PLAVIX PO SCH (08:18)
[2018-01-12] MEDS: PROTONIX INJ 40 MG VIAL IVP SCH (08:18)
[2018-01-12] MEDS: ASPIRIN EC 81 MG PO SCH (08:19)
[2018-01-12] MEDS: LIPITOR TAB 40 MG PO SCH (08:19)
[2018-01-12] MEDS: LEVAQUIN PREMIX IV 750 MG 750 MG/150 ML BAG IV SCH (20:13)
[2018-01-12] MEDS: RESTORIL CAP 15 MG PO PRN (20:14)
[2018-01-13] MEDS: DUONEB 0.5 MG/3 MG NEB SCH ×3 (00:31→09:02)
[2018-01-13] MEDS: NS 1000 ML 1,000 ML IV SCH (02:00)
[2018-01-13 05:20] LABS: BASOPHILS % (AUTO) 0 % (0.2-1.0); HEMATOCRIT 37.3 % (42.0-54.0); HEMOGLOBIN 12.7 g/dL (13.5-18.0); LYMPHOCYTES # (AUTO) 0.9 X10^3/uL (1.3-2.9); LYMPHOCYTES % (AUTO) 9.2 % (21.0-51.0); MEAN CORPUSCULAR HEMOGLOBIN 30.8 pg (27.0-34.0); MEAN CORPUSCULAR HGB CONC 34.1 g/dL (33.0-35.0); MEAN CORPUSCULAR VOLUME 90.5 fL (80.0-100.0); MEAN PLATELET VOLUME 7.6 fL (7.4-11.0); MONOCYTES # (AUTO) 0.7 x10^3/uL (0.3-0.8); MONOCYTES % (AUTO) 7.2 % (0.0-13.0); NEUTROPHILS # (AUTO) 7.8 x10^3/uL (2.2-4.8); NEUTROPHILS % (AUTO) 83.6 % (42.0-75.0); PLATELET COUNT 279 X10^3/uL (150.0-450.0); RED BLOOD COUNT 4.12 X10^6/uL (4.7-6.0); RED CELL DISTRIBUTION WIDTH 13.6 % (11.6-16.5); WHITE BLOOD COUNT 9.4 X10^3/uL (3.6-10.0)
[2018-01-13 05:36] LABS: ALANINE AMINOTRANSFERASE 37 Units/L (12-78); ALBUMIN 2.6 g/dL (3.4-5.0); ALKALINE PHOSPHATASE 50 Units/L (46-116); ASPARTATE AMINO TRANSFERASE 23 Units/L (15-37); BLOOD UREA NITROGEN 10 mg/dL (7-18); CALCIUM 8.2 mg/dL (8.5-10.1); CARBON DIOXIDE 33.6 mmol/L (21-32); CHLORIDE 105 mmol/L (98-107); COR CA(FOR HYPOALB) 9.3 mg/dL (8.5-10.1); COR NA(FOR HYPERGLY) 144 mmol/L (136-145); CREATININE 0.92 mg/dL (0.70-1.30); SODIUM 143 mmol/L (136-145); TOTAL PROTEIN 6.4 g/dL (6.4-8.2); eGFR NON BLACK RACES > 60 (>60)
[2018-01-13] MEDS: FORTAZ or TAZICEF VIAL INJ IVP SCH (05:43)
[2018-01-13] MEDS: SOLU-Medrol 125 MG VIAL IVP SCH (05:43)
[2018-01-13] MEDS: ASPIRIN EC 81 MG PO SCH (09:00)
[2018-01-13] MEDS: PROTONIX INJ 40 MG VIAL IVP SCH (09:00)
[2018-01-13] MEDS: LOPRESSOR TAB 50 MG PO SCH (09:00)
[2018-01-13] MEDS: LIPITOR TAB 40 MG PO SCH (09:00)
[2018-01-13] MEDS: PLAVIX PO SCH (09:00)
[2018-01-13] MEDS: PULMICORT NEB TX 0.5 MG NEB SCH (09:02)
[2018-01-13 10:18] VITALS: BP 140/70
== END 2018-01-13 10:40 | disposition home or self-care (01) ==
LOC: ER 15:18 → OBS 15:18 → MED/SURG 01-10 14:10
PROVIDERS: ADMIT Internal Medicine; ATTEND Internal Medicine
DX: I25.10 Atherosclerotic heart disease of native coronary artery without angina pectoris; R06.02 Shortness of breath; J44.1 Chronic obstructive pulmonary disease with (acute) exacerbation; I10 Essential (primary) hypertension; B96.89 Other specified bacterial agents as the cause of diseases classified elsewhere; R07.89 Other chest pain; J20.8 Acute bronchitis due to other specified organisms; R26.89 Other abnormalities of gait and mobility; R53.1 Weakness; Z23 Encounter for immunization
CPT/HCPCS: 36415; 36600; 71010; 71020; 71045; 71046; 80053; 80061; 81001; 82550; 82553; 82803; 83605; 83735; 83880; 84484; 85025; 87040; 87070; 87077; 87186; 87205; 90686; 93005; 93010; 94640; 94760; 96365; 96367; 96372; 96374; 97165; 99283; 99284; A4222; C9113; 90670; G0378; J0713; J1956; J2920; J2930; J7030; J7050; J7620; J7626

== ENCOUNTER 2019-12-20 10:02 | Observation (INO) ==
[2019-12-20 10:07] VITALS: BMI 21.4
--- NOTE | 2019-12-20 10:19 | DR.CP ---
HPI Time Seen Time Seen by Provider: 12/20/19 10:12 PCP Primary Care Physician: [facility] HPI Comment HPI Comment: PATIENT IS 69YR OLD FEMALE WITH HISTORY OF HTN, COPD AND CAD IS IN ER WITH INCREASING WEAKNESS AND SOB TIMES ONE AND SUBSTERNAL CHEST TIGHTNESS THAT STARTED TODAY. PAIN IS CURRENTLY 3/10 TO 4/10 AND RADIATES TO THE BACK. COUGHING, SLIGHTLY PRODUCTIVE WITH YELLOW SPUTUM. NO FEVER. PATIENT HAVE HAD SIMILAR PAIN IN THE PAST. PATIENT HAVE NOT TAKEN MEDICATION FOR PAIN.DAILY MEDS INCLUDING PLAVIX AND ASA TAKEN TODAY. Complaint Chief Complaint Doctor Comments: INCREASING GENERALIZED WEAKNESS TIMES ONE WEEK AND CHEST TIGHTNESS SINCE LAST NIGHT. Chief Complaint:: PT C/O INTERMITTENT CHEST TIGHTNESS SINCE LAST NIGHT WELL 1 WEEK HISTORY OF INCREASING GENERALIZED WEAKNESS. COVID-19 Coronavirus risk:travel/contact w/high risk person: No Has patient experienced Coronavirus symptoms: No Reviewed Nurses Notes Review: Yes Source History Provided: Patient Mode of Arrival Mode of Arrival: Ambulatory Timing Onset of Chief Complaint: 12/20/19 Came on: Suddenly Duration Duration: Constant Duration: Hours Location Location of Chest Pain: Chest (SUBSTERNAL) Chest Pain Radiation Location: Back Context Onset: While Asleep Cardiac Risk Factors: Smoker, Family History and HTN PE Risk Factors: None History of: Similar pain in the past, MS, Angina, Angioplasty and Aspirin in last 24 hours Prehospital Care: ASA Quality Quality: Pleuritic (TIGHTNESS.) Severity Severity: Moderate Modifying Factors Worsens: Exertion Impoves: Rest Associated Signs and Symptoms Associated Signs and Symptoms: Shortness of Breath PMH PMH Past Medical History: Yes Past Medical History: COPD, Coronary Artery Disease and Hypertension Past Surgical History: Yes Surgical History: Angioplasty/Stents and Ortho Surgery Family History History of Family Medical Conditions: Yes Family Medical History: Cancer and Coronary Artery Disease Social History Does patient currently use any type of tobacco product: Yes Have you used tobacco products in the last 12 months: Yes Type of Tobacco Use: Cigarettes Does any household member use tobacco: No Alcohol Use: Rarely Do you use any recreational Drugs:: No Lives With: Family Lives Where: Home Travel Risk Coronavirus risk:travel/contact w/high risk person: No Has patient experienced Coronavirus symptoms: No Infectious screening In the last 2 months have you had wt loss of >10#?: NO Have you had fever, night sweats or hemotysis?: No Have you traveled outside the country in the last 6 months?: No Isolation: Standard ROS Review of Systems Constitutional: See HPI, Weakness and Fatigue; negative Fever Eyes: No Symptoms Reported and See HPI ENTM: See HPI and Nose Congestion; negative Ear Pain, Nose Discharge and Throat Pain Respiratoy: See HPI, Productive Cough, Short of Breath and Wheezing Cardiovascular: See HPI and Chest Pain; negative Edema and Palpitations Gastrointestinal/Abdominal: No Symptoms Reported and See HPI; negative Abdominal Pain, Diarrhea, Nausea and Vomiting Genitourinary: No Symptoms Reported and See HPI; negative Dysuria, Frequency and Hematuria Neurological: No Symptoms Reported, See HPI and Weakness; negative Headache and Dizziness Musculoskeletal: No Symptoms Reported and See HPI; negative Back Pain and Muscle Pain Integumentary: No Symptoms Reported and See HPI; negative Change in Color, Rash and Juandice Hematologic/Lymphatic: No Symptoms Reported and See HPI; negative Easy Bruising and Swollen Glands Endocrine: No Symptoms Reported and See HPI; negative Increased Thirst and In creased Urine Psychiatric: No Symptoms Reported and See HPI All Other Systems: Reviewed and Negative PE Vitals Vitals: Temperature 97.8 F Pulse Rate 55 Respiratory Rate 13 Blood Pressure [Left Arm] 130/75 Blood Pressure [Standing] 126/65 Blood Pressure [Sitting] 133/68 Blood Pressure [Lying] 125/70 Blood Pressure 131/63 O2 Sat by Pulse Oximetry 100 General Limitations: No Limitations General Appearance: Alert and In No Apparent Distress Head Head Exam: Normal Inspection Eyes Eye exam: Normal Appearance and PERRL; negative Scleral Icterus and Conjunctival Injection ENT ENT Exam: Normal Exam, Normal Oropharynx, Normal External Ear Exam and TM's Normal Bilaterally Chest Chest Inspection: Normal Inspection and Symmetric Chest Wall Rise; negative Tenderness Respiratory Respiratory Exam: Normal Lung Sounds Bilat; negative Accessory Muscle Use, Chest Wall Tenderness and Respiratory Distress Respiratory Exam: Bilateral: Wheezing and Bilateral: Rhonchi, Upper: Wheezing and Lower: Wheezing and Lower: Rhonchi Cardiovascular Cardiovascular Exam: Regular Rate, Normal Rhythm and Normal Heart Sounds; negative Systolic Murmur and Diastolic Murmur Pulse: Normal Edema: Normal Abdominal Exam Abdominal Exam: Normal Inspection, Normal Bowel Sounds and Soft; negative Tenderness Extremities Extremities Exam: Normal Inspection and Normal Capillary Refill; negative Tenderness and Calf Tenderness Back Back Exam: Normal Inspection; negative (R) CVA Tenderness and (L) CVA Tenderness Neurologic Neurological Exam: Alert and Oriented X3; negative Motor Sensory Deficit Psychiatric Psychiatric Exam: Normal Affect and Normal Mood Skin Skin Exam: Warm, Dry, Intact and Normal Color MDM Additional Information Additional Information Obtained From: Old Records Differential Diagnosis Differential Diagnosis: Angina, Chest Wall Pain, CHF, Costochondritis, Myocardial Infarction, Pericarditis, Pleuritis, Pneumonia and Pneumothorax COURSE Treatment Treatment: SEE ORDERS. DUONEB 0.5MG/3MG IN ER. Reevaluation 1st: Improved (SOB IMPROVING.) Consultation Consultation Comments: DISCUSSED PATIENT WITH DR. HESTER AND SHE WILL ADMIT PATIENT. Education/Counseling Education/Counseling: Patient Educated On: Diagnosis and Needs for Follow Up ROR Labs Reviewed Laboratory Results Reviewed?: Yes Result Diagrams: 12/22/19 04:30 12/22/19 04:30 Laboratory: 12/20/19 10:35 Blood Blood Culture - Final 12/20/19 10:30 Blood Blood Culture - Final WBC 8.0 X10^3/uL (3.6-10.0) 12/20/19 10:35 RBC 4.73 X10^6/uL (4.7-6.0) 12/20/19 10:35 Hgb 14.3 g/dL (13.5-18.0) 12/20/19 10:35 Hct 42.9 % (42.0-54.0) 12/20/19 10:35 MCV 90.6 fL (80.0-100.0) 12/20/19 10:35 MCH 30.3 pg (27.0-34.0) 12/20/19 10:35 MCHC 33.4 g/dL (33.0-35.0) 12/20/19 10:35 RDW 14.3 % (11.6-16.5) 12/20/19 10:35 Plt Count 221 X10^3/uL (150.0-450.0) 12/20/19 10:35 MPV 7.1 fL (7.4-11.0) L 12/20/19 10:35 Neut % (Auto) 68.1 % (42.0-75.0) 12/20/19 10:35 Lymph % (Auto) 18.5 % (21.0-51.0) L 12/20/19 10:35 [place] % (Auto) 9.8 % (0.0-13.0) 12/20/19 10:35 Eos % (Auto) 1.8 % (0.9-2.9) 12/20/19 10:35 Baso % (Auto) 1.8 % (0.2-1.0) H 12/20/19 10:35 Neut # (Auto) 5.5 x10^3/uL (2.2-4.8) H 12/20/19 10:35 Lymph # (Auto) 1.5 X10^3/uL (1.3-2.9) 12/20/19 10:35 [place] # (Auto) 0.8 x10^3/uL (0.3-0.8) 12/20/19 10:35 Eos # (Auto) 0.1 x10^3/uL (0.0-0.2) 12/20/19 10:35 Baso # (Auto) 0.1 X10^3/uL (0.0-0.1) 12/20/19 10:35 Absolute Nucleated RBC 0.0 /100WBC 12/20/19 10:35 Sample Site Lb 12/20/19 10:20 ABG pH 7.480 (7.35-7.45) H 12/20/19 10:20 ABG pCO2 36.0 mmHg (35.0-45.0) 12/20/19 10:20 ABG pO2 117.0 mmHg (80.0-100.0) H 12/20/19 10:20 ABG HCO3 26.8 mmol/L (22-26) H 12/20/19 10:20 ABG O2 Saturation 99.0 % (90-100) 12/20/19 10:20 ABG Base Excess 3.3 mmol/L (-2.0-2.0) H 12/20/19 10:20 Patrick Test Na 12/20/19 10:20 A-a Gradient -12.0 mmHg 12/20/19 10:20 FiO2 21.0 12/20/19 10:20 Blood Gas Comments Bret well cb 12/20/19 10:20 Sodium 137 mmol/L (136-145) 12/20/19 10:35 Corrected Sodium TNP 12/20/19 10:35 Potassium 4.3 mmol/L (3.5-5.1) 12/20/19 10:35 Chloride 102 mmol/L (98-107) 12/20/19 10:35 Carbon Dioxide 26.9 mmol/L (21-32) 12/20/19 10:35 BUN 10 mg/dL (7-18) 12/20/19 10:35 Creatinine 0.81 mg/dL (0.70-1.30) 12/20/19 10:35 Est GFR (MDRD) Af Amer > 60 (>60) 12/20/19 10:35 Est GFR (MDRD) Non-Af > 60 (>60) 12/20/19 10:35 Glucose 101 mg/dL (65-99) H 12/20/19 10:35 Lactic Acid 1.2 mmol/L (0.4-2.0) 12/20/19 10:35 Calcium 8.8 mg/dL (8.5-10.1) 12/20/19 10:35 Corrected Calcium TNP 12/20/19 10:35 Total Bilirubin 0.40 mg/dL (0.2-1.0) 12/20/19 10:35 AST 18 Units/L (15-37) 12/20/19 10:35 ALT 23 Units/L (12-78) 12/20/19 10:35 Alkaline Phosphatase 64 Units/L (46-116) 12/20/19 10:35 Creatine Kinase 52 Units/L (39-308) 12/20/19 10:35 CK-MB (CK-2) < 1.0 ng/mL (0-4.0) 12/20/19 10:35 CK/CKMB % Calc 1.9 % (<4) 12/20/19 10:35 Troponin I < 0.02 ng/mL (0-1.5) 12/20/19 10:35 B-Natriuretic Peptide 42.8 pg/mL (0-79) 12/20/19 10:35 Total Protein 7.1 g/dL (6.4-8.2) 12/20/19 10:35 Albumin 3.4 g/dL (3.4-5.0) 12/20/19 10:35 Globulin 3.7 g/dL (2.5-4.5) 12/20/19 10:35 Albumin/Globulin Ratio 0.9 Ratio (1.1-2.1) L 12/20/19 10:35 Triglycerides 68 mg/dL (0-150) 12/20/19 10:35 Cholesterol 101 mg/dL (0-200) 12/20/19 10:35 LDL Cholesterol, Calc 33 mg/dL (0-100) 12/20/19 10:35 HDL Cholesterol 54 mg/dL (40-60) 12/20/19 10:35 Cholesterol/HDL Ratio 1.9 (0.0-5.0) 12/20/19 10:35 Specimen Type Random urine 12/20/19 11:01 Urine Color Pale yellow (YELLOW) 12/20/19 11:01 Urine Appearance Clear (CLEAR) 12/20/19 11:01 Urine pH 7.0 (5.0 - 8.0) 12/20/19 11:01 Ur Specific [place] 1.010 (1.000-1.030) 12/20/19 11:01 Urine Protein Negative (NEGATIVE) 12/20/19 11:01 Urine Glucose (UA) Negative (NEGATIVE) 12/20/19 11:01 Urine Ketones Negative (NEGATIVE) 12/20/19 11:01 Urine Occult Blood Negative (NEGATIVE) 12/20/19 11:01 Urine Nitrite Negative (NEGATIVE) 12/20/19 11:01 Urine Bilirubin Negative (NEGATIVE) 12/20/19 11:01 Urine Urobilinogen Normal (NORMAL) 12/20/19 11:01 Ur Leukocyte Esterase Negative (NEGATIVE) 12/20/19 11:01 XRAY XRAY Interpreted by: Radiologist and Self EKG Rate: 54 [place]ut[place]: Normal Rhythm: NSR and SB Block: None Hypertrophy: None ST: Normal Opioid Opioid Risk Tool Age (William box if 16-45): No History of Preadolescent Sexual Abuse: No Total: 0 Total Score Risk Category: Low Risk Copyright: Asim REGAN predicting aberrant behaviors Diagnosis Discharge Problem: COPD exacerbation Chest pain Qualifiers: Chest pain type: unspecified Qualified Code(s): R07.9 - Chest pain, unspecified Instructions Instructions: Shortness of Breath, Adult, [id number]-[id number] Fatigue Nonspecific Chest Pain Hand Washing, Mfsk-ie-Laad Chronic Obstructive Pulmonary Disease Exacerbation, Zhki-cm-Pmxg Weakness, Mfzo-mv-Ydwm Droplet Precautions, Rxzk-xp-Fzfu How to Use a Nebulizer, Adult Hypertension, Otgl-cc-Ovhv Form - Blood Pressure Record Sheet Form - COPD Action Plan Pursed Lip Breathing You've Been Prescribed an Antibiotic in the Hospital for an Infection - [facility] (06/2017) Forms: Precautions for COVID19 Patient Portal Social Distancing
[2019-12-20 10:26] LABS: ABG BASE EXCESS 3.3 mmol/L (-2.0-2.0); ABG HCO3 26.8 mmol/L (22-26)
[2019-12-20 10:54] LABS: BASOPHILS # (AUTO) 0.1 X10^3/uL (0.0-0.1); BASOPHILS % (AUTO) 1.8 % (0.2-1.0); EOSINOPHILS # (AUTO) 0.1 x10^3/uL (0.0-0.2); EOSINOPHILS % (AUTO) 1.8 % (0.9-2.9); HEMATOCRIT 42.9 % (42.0-54.0); HEMOGLOBIN 14.3 g/dL (13.5-18.0); LYMPHOCYTES # (AUTO) 1.5 X10^3/uL (1.3-2.9); LYMPHOCYTES % (AUTO) 18.5 % (21.0-51.0); MEAN CORPUSCULAR HEMOGLOBIN 30.3 pg (27.0-34.0); MEAN CORPUSCULAR HGB CONC 33.4 g/dL (33.0-35.0); MEAN CORPUSCULAR VOLUME 90.6 fL (80.0-100.0); MEAN PLATELET VOLUME 7.1 fL (7.4-11.0); MONOCYTES # (AUTO) 0.8 x10^3/uL (0.3-0.8); MONOCYTES % (AUTO) 9.8 % (0.0-13.0); NEUTROPHILS # (AUTO) 5.5 x10^3/uL (2.2-4.8); NEUTROPHILS % (AUTO) 68.1 % (42.0-75.0); PLATELET COUNT 221 X10^3/uL (150.0-450.0); RED BLOOD COUNT 4.73 X10^6/uL (4.7-6.0); RED CELL DISTRIBUTION WIDTH 14.3 % (11.6-16.5)
[2019-12-20 11:07] LABS: LACTIC ACID 1.2 mmol/L (0.4-2.0)
[2019-12-20 11:10] LABS: BLOOD UREA NITROGEN 10 mg/dL (7-18); CALCIUM 8.8 mg/dL (8.5-10.1); CARBON DIOXIDE 26.9 mmol/L (21-32); CHLORIDE 102 mmol/L (98-107); CREATININE 0.81 mg/dL (0.70-1.30); SODIUM 137 mmol/L (136-145); TROPONIN I < 0.02 ng/mL (0-1.5); eGFR NON BLACK RACES > 60 (>60)
--- NOTE | 2019-12-20 11:12 | RAD ---
HISTORYPT C/O INTERMITTENT CHEST TIGHTNESS SINCE LAST NIGHT WELL 1 WEEK HISTORY OF INCREASING GENERALIZED WEAKNESS.STUDYCHEST, 1 VIEWCOMPARISONAugust 2019TECHNIQUEPortable view of the chest single viewFINDINGSChronic interstitial lung changes with flattening of the diaphragm consistent with COPD is observed. Emphysematous changes are suspected within the lung apices. No organizing infiltrates are identified. The pleural spaces are clear. The heart size and mediastinal contours are normal. No acute osseous abnormalities of the chest are demonstrated. Stable calcified granuloma suspected within the peripheral margin of the right midlung.IMPRESSIONRadiographic features of chronic obstructive pulmonary disease (emphysema).No acute pulmonary infiltrates are identified.Electronically signed by: TARIK DANIELS (Dec 20, 2019 11:12:07)
[2019-12-20 11:14] LABS: ALANINE AMINOTRANSFERASE 23 Units/L (12-78); ALBUMIN 3.4 g/dL (3.4-5.0); ALKALINE PHOSPHATASE 64 Units/L (46-116); ASPARTATE AMINO TRANSFERASE 18 Units/L (15-37); CKMB % 1.9 % (<4); CREATINE KINASE 52 Units/L (39-308); CREATINE KINASE MB < 1.0 ng/mL (0-4.0); TOTAL PROTEIN 7.1 g/dL (6.4-8.2)
[2019-12-20 11:17] LABS: BILIRUBIN,URINE NEGATIVE (NEGATIVE); BLOOD/HEMOGLOBIN,URINE NEGATIVE (NEGATIVE); GLUCOSE, URINE NEGATIVE (NEGATIVE); KETONES,URINE NEGATIVE (NEGATIVE); LEUKOCYTE ESTERASE ,URINE NEGATIVE (NEGATIVE); NITRITES,URINE NEGATIVE (NEGATIVE); PROTEIN,URINE NEGATIVE (NEGATIVE); UROBILINOGEN,URINE NORMAL (NORMAL)
[2019-12-20 11:18] LABS: APPEARANCE,URINE CLEAR (CLEAR); COLOR,URINE PALE YELLOW (YELLOW)
[2019-12-20 14:08] LABS: CHOL/HDL RATIO 1.9 (0.0-5.0)
[2019-12-20] MEDS ORDERED: DUONEB 0.5 MG/3 MG (3 mL) NEB ONE (15:54)
[2019-12-20] MEDS: DUONEB 0.5 MG/3 MG (3 mL) NEB SCH ×2 (16:15→18:23)
[2019-12-20] MEDS: LIPITOR TAB 40 MG PO SCH (20:56)
[2019-12-20] MEDS: LOPRESSOR TAB 50 MG PO SCH (20:57)
[2019-12-20 23:00] LABS: CKMB % 1.7 % (<4); CREATINE KINASE 59 Units/L (39-308); CREATINE KINASE MB < 1.0 ng/mL (0-4.0); TROPONIN I < 0.02 ng/mL (0-1.5)
[2019-12-21] MEDS: DUONEB 0.5 MG/3 MG (3 mL) NEB SCH ×4 (00:18→17:45)
[2019-12-21 05:11] LABS: BASOPHILS # (AUTO) 0.1 X10^3/uL (0.0-0.1); EOSINOPHILS # (AUTO) 0.2 x10^3/uL (0.0-0.2); EOSINOPHILS % (AUTO) 2.7 % (0.9-2.9); HEMATOCRIT 42.9 % (42.0-54.0); HEMOGLOBIN 14.1 g/dL (13.5-18.0); LYMPHOCYTES # (AUTO) 2.5 X10^3/uL (1.3-2.9); LYMPHOCYTES % (AUTO) 29.7 % (21.0-51.0); MEAN CORPUSCULAR HEMOGLOBIN 30.2 pg (27.0-34.0); MEAN CORPUSCULAR HGB CONC 32.9 g/dL (33.0-35.0); MEAN CORPUSCULAR VOLUME 91.7 fL (80.0-100.0); MEAN PLATELET VOLUME 7.5 fL (7.4-11.0); MONOCYTES # (AUTO) 0.8 x10^3/uL (0.3-0.8); MONOCYTES % (AUTO) 9.2 % (0.0-13.0); NEUTROPHILS # (AUTO) 4.8 x10^3/uL (2.2-4.8); NEUTROPHILS % (AUTO) 57.4 % (42.0-75.0); PLATELET COUNT 201 X10^3/uL (150.0-450.0); RED BLOOD COUNT 4.68 X10^6/uL (4.7-6.0); RED CELL DISTRIBUTION WIDTH 14.7 % (11.6-16.5); WHITE BLOOD COUNT 8.4 X10^3/uL (3.6-10.0)
[2019-12-21 05:35] LABS: ALANINE AMINOTRANSFERASE 22 Units/L (12-78); ALBUMIN 3.3 g/dL (3.4-5.0); ALKALINE PHOSPHATASE 57 Units/L (46-116); ASPARTATE AMINO TRANSFERASE 18 Units/L (15-37); BLOOD UREA NITROGEN 9 mg/dL (7-18); CALCIUM 8.7 mg/dL (8.5-10.1); CARBON DIOXIDE 27.5 mmol/L (21-32); CHLORIDE 106 mmol/L (98-107); CKMB % 1.7 % (<4); COR CA(FOR HYPOALB) 9.3 mg/dL (8.5-10.1); CREATINE KINASE 58 Units/L (39-308); CREATINE KINASE MB < 1.0 ng/mL (0-4.0); CREATININE 0.84 mg/dL (0.70-1.30); MAGNESIUM 2.3 mg/dL (1.7-2.9); SODIUM 141 mmol/L (136-145); TOTAL PROTEIN 6.7 g/dL (6.4-8.2); TROPONIN I < 0.02 ng/mL (0-1.5); eGFR NON BLACK RACES > 60 (>60)
[2019-12-21] MEDS ORDERED: PLAVIX ONE (07:50)
[2019-12-21] MEDS ORDERED: ASPIRIN EC 81 MG PO ONE (07:50)
--- NOTE | 2019-12-21 08:13 | DR.H&P ---
H&P History & Physical for Day of: H&P Date: 12/21/19 Chief Complaint Chief Complaint: shortness of breath weakness Allergies Allergies Allergy/AdvReac Type Severity Reaction Status Date / Time No Known Drug Allergies Allergy Verified 10/20/19 11:39 History of Present Illness History of Present Illness: Pt is a 69 yo m pmhx CAD(PCI), HTN, COPD presenting after 2-3 days of shortness of breath, cough, chest tightness and generalized weakness. He reports symptoms did not improve and gradually worsened so he came to the ED. Labs/imaging: Wbc 8.4, Hgb 14.1, Plt 201, Na 141, K 4, Cr 0.84, Gluc 98, Troponin negative x 3, UA negative, AB.48/36/117/26/99% on RA, CXR: Radiographic features of chronic obstructive pulmonary disease (emphysema). No acute pulmonary infiltrates are identified. Pt was admitted and started on bronchodilators(Duonebs), supplemental O2 prn, for COPD exacerbation. Will add IV Solumedrol 80mg daily and Azithromycin. Restart home medications. Will continue to monitor and follow up labs/imaging in the morning. Past Medical History Past Medical History: COPD, Coronary Artery Disease and Hypertension Past Surgical History Surgical History: Angioplasty/Stents and Ortho Surgery Family History Family Medical History: Cancer and Coronary Artery Disease Social History Does patient currently use any type of tobacco product: No Have you used tobacco products in the last 12 months: No Type of Tobacco Use: None Does any household member use tobacco: No Alcohol Use: None Drug Use: Prescription Drugs Medications Home Medications: No Known Drug Allergies Allergy (Verified 10/20/19 11:39) Labs Result Diagrams: 12/21/19 04:05 12/21/19 04:05 Labs: Laboratory WBC 8.4 X10^3/uL (3.6-10.0) 12/21/19 04:05 RBC 4.68 X10^6/uL (4.7-6.0) L 12/21/19 04:05 Hgb 14.1 g/dL (13.5-18.0) 12/21/19 04:05 Hct 42.9 % (42.0-54.0) 12/21/19 04:05 MCV 91.7 fL (80.0-100.0) 12/21/19 04:05 MCH 30.2 pg (27.0-34.0) 12/21/19 04:05 MCHC 32.9 g/dL (33.0-35.0) L 12/21/19 04:05 RDW 14.7 % (11.6-16.5) 12/21/19 04:05 Plt Count 201 X10^3/uL (150.0-450.0) 12/21/19 04:05 MPV 7.5 fL (7.4-11.0) 12/21/19 04:05 Neut % (Auto) 57.4 % (42.0-75.0) 12/21/19 04:05 Lymph % (Auto) 29.7 % (21.0-51.0) 12/21/19 04:05 [place] % (Auto) 9.2 % (0.0-13.0) 12/21/19 04:05 Eos % (Auto) 2.7 % (0.9-2.9) 12/21/19 04:05 Baso % (Auto) 1.0 % (0.2-1.0) 12/21/19 04:05 Neut # (Auto) 4.8 x10^3/uL (2.2-4.8) 12/21/19 04:05 Lymph # (Auto) 2.5 X10^3/uL (1.3-2.9) 12/21/19 04:05 [place] # (Auto) 0.8 x10^3/uL (0.3-0.8) 12/21/19 04:05 Eos # (Auto) 0.2 x10^3/uL (0.0-0.2) 12/21/19 04:05 Baso # (Auto) 0.1 X10^3/uL (0.0-0.1) 12/21/19 04:05 Absolute Nucleated RBC 0.0 /100WBC 12/21/19 04:05 Sample Site Lb 12/20/19 10:20 ABG pH 7.480 (7.35-7.45) H 12/20/19 10:20 ABG pCO2 36.0 mmHg (35.0-45.0) 12/20/19 10:20 ABG pO2 117.0 mmHg (80.0-100.0) H 12/20/19 10:20 ABG HCO3 26.8 mmol/L (22-26) H 12/20/19 10:20 ABG O2 Saturation 99.0 % (90-100) 12/20/19 10:20 ABG Base Excess 3.3 mmol/L (-2.0-2.0) H 12/20/19 10:20 Patrick Test Na 12/20/19 10:20 A-a Gradient -12.0 mmHg 12/20/19 10:20 FiO2 21.0 12/20/19 10:20 Blood Gas Comments Rbet well cb 12/20/19 10:20 Sodium 141 mmol/L (136-145) 12/21/19 04:05 Corrected Sodium TNP 12/21/19 04:05 Potassium 4.0 mmol/L (3.5-5.1) 12/21/19 04:05 Chloride 106 mmol/L (98-107) 12/21/19 04:05 Carbon Dioxide 27.5 mmol/L (21-32) 12/21/19 04:05 BUN 9 mg/dL (7-18) 12/21/19 04:05 Creatinine 0.84 mg/dL (0.70-1.30) 12/21/19 04:05 Est GFR (MDRD) Af Amer > 60 (>60) 12/21/19 04:05 Est GFR (MDRD) Non-Af > 60 (>60) 12/21/19 04:05 Glucose 98 mg/dL (65-99) 12/21/19 04:05 Lactic Acid 1.2 mmol/L (0.4-2.0) 12/20/19 10:35 Calcium 8.7 mg/dL (8.5-10.1) 12/21/19 04:05 Corrected Calcium 9.3 mg/dL (8.5-10.1) 12/21/19 04:05 Magnesium 2.3 mg/dL (1.7-2.9) 12/21/19 04:05 Total Bilirubin 0.40 mg/dL (0.2-1.0) 12/21/19 04:05 AST 18 Units/L (15-37) 12/21/19 04:05 ALT 22 Units/L (12-78) 12/21/19 04:05 Alkaline Phosphatase 57 Units/L (46-116) 12/21/19 04:05 Creatine Kinase 58 Units/L (39-308) 12/21/19 04:05 CK-MB (CK-2) < 1.0 ng/mL (0-4.0) 12/21/19 04:05 CK/CKMB % Calc 1.7 % (<4) 12/21/19 04:05 Troponin I < 0.02 ng/mL (0-1.5) 12/21/19 04:05 B-Natriuretic Peptide 42.8 pg/mL (0-79) 12/20/19 10:35 Total Protein 6.7 g/dL (6.4-8.2) 12/21/19 04:05 Albumin 3.3 g/dL (3.4-5.0) L 12/21/19 04:05 Globulin 3.4 g/dL (2.5-4.5) 12/21/19 04:05 Albumin/Globulin Ratio 1.0 Ratio (1.1-2.1) L 12/21/19 04:05 Triglycerides 68 mg/dL (0-150) 12/20/19 10:35 Cholesterol 101 mg/dL (0-200) 12/20/19 10:35 LDL Cholesterol, Calc 33 mg/dL (0-100) 12/20/19 10:35 HDL Cholesterol 54 mg/dL (40-60) 12/20/19 10:35 Cholesterol/HDL Ratio 1.9 (0.0-5.0) 12/20/19 10:35 Specimen Type Random urine 12/20/19 11:01 Urine Color Pale yellow (YELLOW) 12/20/19 11:01 Urine Appearance Clear (CLEAR) 12/20/19 11:01 Urine pH 7.0 (5.0 - 8.0) 12/20/19 11:01 Ur Specific [place] 1.010 (1.000-1.030) 12/20/19 11:01 Urine Protein Negative (NEGATIVE) 12/20/19 11:01 Urine Glucose (UA) Negative (NEGATIVE) 12/20/19 11:01 Urine Ketones Negative (NEGATIVE) 12/20/19 11:01 Urine Occult Blood Negative (NEGATIVE) 12/20/19 11:01 Urine Nitrite Negative (NEGATIVE) 12/20/19 11: Urine Bilirubin Negative (NEGATIVE) 12/20/19 11:01 Urine Urobilinogen Normal (NORMAL) 12/20/19 11:01 Ur Leukocyte Esterase Negative (NEGATIVE) 12/20/19 11:01 Review of Systems Constitutional: Weakness; denies Fever and Chills Eyes: No Symptoms Reported ENT: No Symptoms Reported Respiratory: Cough, Shortness of Breath and Wheezing Cardiovascular: No Symptoms Reported Gastrointestinal: No Symptoms Reported Genitourinary: No Symptoms Reported Musculoskeletal: No Symptoms Reported Skin: No Symptoms Reported Neurological: No Symptoms Reported Physical Exam Vital Signs: Temperature 97.5 F Pulse Rate [Left Radial] 64 Pulse Rate 55 Respiratory Rate 20 Blood Pressure [Left Arm] 116/58 Blood Pressure [Standing] 126/65 Blood Pressure [Sitting] 133/68 Blood Pressure [Lying] 125/70 Blood Pressure 131/63 O2 Sat by Pulse Oximetry 94 Oriented: Normal Eyes: Normal Ear: Normal Nose: Normal Throat: Normal Respiratory: Diminished Throughout Cardiovascular: Normal : Normal Auscultation: Bowel Sounds: Normal Palpation: Normal Tenderness: Normal Skin: Normal Musculoskeletal: Normal Psychiatric: Normal Mood Description: Calm and Appropriate Affect: Normal Speech Pattern: Clear and Appropriate Assessment/Plan (1) COPD exacerbation: Status: Acute Plan: Continue Solumedrol, Duonebs, Azithromycin Supplemental O2 prn Review H&P Reviewed: Yes Patient was examined?: Yes
[2019-12-21] MEDS: ASPIRIN EC 81 MG PO SCH (08:21)
[2019-12-21] MEDS: PLAVIX PO SCH (08:22)
[2019-12-21] MEDS ORDERED: NS 250 ML IV 250 ML IV ONE (08:43)
[2019-12-21] MEDS: LOPRESSOR TAB 50 MG PO SCH ×2 (08:45→20:32)
[2019-12-21] MEDS: ZITHROMAX INJ 500 MG VIAL 500 MG in NS 250 ML IV 250 ML IV SCH (08:45)
[2019-12-21] MEDS: SOLU-Medrol 40 MG VIAL IVP SCH (08:47)
[2019-12-21] MEDS ORDERED: AFLURIA II4 or FLUARIX II4 IM ONE (09:53)
[2019-12-21] MEDS: LOVENOX INJ 40 MG SYR SC SCH (10:50)
[2019-12-21] MEDS: LIPITOR TAB 40 MG PO SCH (20:32)
[2019-12-22] MEDS: DUONEB 0.5 MG/3 MG (3 mL) NEB SCH ×3 (00:45→09:42)
[2019-12-22 05:22] LABS: BASOPHILS # (AUTO) 0.1 X10^3/uL (0.0-0.1); BASOPHILS % (AUTO) 0.6 % (0.2-1.0); EOSINOPHILS # (AUTO) 0.1 x10^3/uL (0.0-0.2); EOSINOPHILS % (AUTO) 1.5 % (0.9-2.9); HEMATOCRIT 40.2 % (42.0-54.0); HEMOGLOBIN 13.3 g/dL (13.5-18.0); LYMPHOCYTES # (AUTO) 2.1 X10^3/uL (1.3-2.9); LYMPHOCYTES % (AUTO) 21.8 % (21.0-51.0); MEAN CORPUSCULAR HEMOGLOBIN 30.3 pg (27.0-34.0); MEAN CORPUSCULAR HGB CONC 33.1 g/dL (33.0-35.0); MEAN CORPUSCULAR VOLUME 91.6 fL (80.0-100.0); MEAN PLATELET VOLUME 7.5 fL (7.4-11.0); MONOCYTES # (AUTO) 0.7 x10^3/uL (0.3-0.8); MONOCYTES % (AUTO) 6.8 % (0.0-13.0); NEUTROPHILS # (AUTO) 6.7 x10^3/uL (2.2-4.8); NEUTROPHILS % (AUTO) 69.3 % (42.0-75.0); PLATELET COUNT 203 X10^3/uL (150.0-450.0); RED BLOOD COUNT 4.38 X10^6/uL (4.7-6.0); RED CELL DISTRIBUTION WIDTH 14.1 % (11.6-16.5); WHITE BLOOD COUNT 9.7 X10^3/uL (3.6-10.0)
[2019-12-22 05:34] LABS: ALANINE AMINOTRANSFERASE 19 Units/L (12-78); ALKALINE PHOSPHATASE 55 Units/L (46-116); ASPARTATE AMINO TRANSFERASE 16 Units/L (15-37); BLOOD UREA NITROGEN 9 mg/dL (7-18); CALCIUM 8.4 mg/dL (8.5-10.1); CARBON DIOXIDE 25.4 mmol/L (21-32); CHLORIDE 107 mmol/L (98-107); COR CA(FOR HYPOALB) 9.2 mg/dL (8.5-10.1); CREATININE 0.82 mg/dL (0.70-1.30); SODIUM 141 mmol/L (136-145); TOTAL PROTEIN 6.4 g/dL (6.4-8.2); eGFR NON BLACK RACES > 60 (>60)
[2019-12-22 05:39] LABS: COR NA(FOR HYPERGLY) 142 mmol/L (136-145)
[2019-12-22] MEDS ORDERED: POTASSIUM CHL 60 MEQ/NS 0.45% 500 ML IV PRN (05:46)
[2019-12-22] MEDS ORDERED: POTASSIUM CHL 40 MEQ/NS 0.45% 500 ML IV PRN (05:46)
[2019-12-22] MEDS ORDERED: MICRO K EXTEN CAP 10 MEQ PO PRN (05:46)
[2019-12-22] MEDS ORDERED: K-RIDER 10 MEQ/NS 100 ML 10 MEQ/100 ML BAG IV PRN (05:46)
[2019-12-22] MEDS ORDERED: MAGNESIUM SULFATE 1 GRAM/100 mL PREMIX 1 GM/100 ML BAG IV PRN (05:46)
[2019-12-22] MEDS ORDERED: K-DUR TAB 20 MEQ PO PRN (05:46)
[2019-12-22] MEDS ORDERED: KLOR-CON PO PRN (05:46)
[2019-12-22] MEDS ORDERED: POTASSIUM CHLORIDE LIQ 20 MEQ UDC PO PRN (05:46)
[2019-12-22] MEDS ORDERED: ZITHROMAX INJ 500 MG VIAL IV ONE (08:06)
--- NOTE | 2019-12-22 08:09 | W.DIS.FURT ---
Summary of Discharge Discharge Summary of Date Date of Exam: 12/22/19 Admission Date Date of Admission: 12/20/19 Admission Diagnosis Hospital Course: Pt is a 69 yo m pmhx CAD(PCI), HTN, COPD admitted for COPD exacerbation. Hospital course and treatments included: bronchodilators(Duonebs), supplemental O2 prn, IV Solumedrol, and Azithromycin. Labs/imaging: Wbc 9.7, Hgb 13.3, Plt 203, Na 141, K 3.4, Cr 0.82, Gluc 150, Troponin negative x 3, UA negative, CXR: Radiographic features of chronic obstructive pulmonary disease (emphysema). No acute pulmonary infiltrates are identified. Pt responded well to treatment and was stable and on room air on discharge. Rx prednisone and azithromycin course. He has nebulizer and duonebs at home. Discharged in stable condition and instructed to follow up with pcp in 1 week. Vital Signs: Vital Signs (72 hours) 12/20/19 10:04 12/20/19 10:09 12/20/19 10:15 Temperature 97.8 F Pulse Rate 57 L 55 L 54 L Pulse Rate [Left Radial] Respiratory Rate 18 17 15 Blood Pressure 163/78 Blood Pressure [Left Arm] O2 Sat by Pulse Oximetry 98 100 99 12/20/19 10:30 12/20/19 10:45 12/20/19 10:55 Temperature Pulse Rate 53 L 52 L 52 L Pulse Rate [Left Radial] Respiratory Rate 13 14 11 L Blood Pressure 145/74 Blood Pressure [Left Arm] O2 Sat by Pulse Oximetry 100 98 12/20/19 10:56 12/20/19 11:00 12/20/19 11:15 Temperature Pulse Rate 51 L 54 L 64 Pulse Rate [Left Radial] Respiratory Rate 12 17 20 Blood Pressure 145/74 133/71 Blood Pressure [Left Arm] O2 Sat by Pulse Oximetry 98 100 99 12/20/19 11:30 12/20/19 11:45 12/20/19 12:00 Temperature Pulse Rate 51 L 53 L 51 L Pulse Rate [Left Radial] Respiratory Rate Blood Pressure 135/70 119/65 Blood Pressure [Left Arm] O2 Sat by Pulse Oximetry 99 99 99 12/20/19 12:15 12/20/19 12:30 12/20/19 12:45 Temperature Pulse Rate 51 L 50 L 48 L Pulse Rate [Left Radial] Respiratory Rate 13 12 13 Blood Pressure 118/77 Blood Pressure [Left Arm] O2 Sat by Pulse Oximetry 100 99 100 12/20/19 13:00 12/20/19 13:15 12/20/19 13:30 Temperature Pulse Rate 53 L 62 55 L Pulse Rate [Left Radial] Respiratory Rate 24 13 Blood Pressure 131/63 Blood Pressure [Left Arm] O2 Sat by Pulse Oximetry 97 100 100 12/20/19 16:00 12/20/19 16:15 12/20/19 20:00 Temperature 97.4 F L 98.8 F Pulse Rate 70 Pulse Rate [Left Radial] 74 65 Respiratory Rate 18 18 Blood Pressure Blood Pressure [Left Arm] 131/70 123/66 O2 Sat by Pulse Oximetry 96 99 95 12/21/19 00:00 12/21/19 00:18 12/21/19 03:36 Temperature 97.7 F 97.5 F L Pulse Rate 55 L Pulse Rate [Left Radial] 55 L 64 Respiratory Rate 20 20 Blood Pressure Blood Pressure [Left Arm] 133/66 116/58 O2 Sat by Pulse Oximetry 95 97 94 L 12/21/19 08:00 12/21/19 12:00 12/21/19 16:00 Temperature 98.0 F 98.6 F 98.5 F Pulse Rate Pulse Rate [Left Radial] 73 69 73 Respiratory Rate 20 20 20 Blood Pressure Blood Pressure [Left Arm] 107/61 113/61 121/59 O2 Sat by Pulse Oximetry 95 95 96 12/21/19 20:00 12/21/19 23:48 12/22/19 00:45 Temperature 98.3 F 98.4 F Pulse Rate 55 L Pulse Rate [Left Radial] 82 78 Respiratory Rate 18 16 Blood Pressure Blood Pressure [Left Arm] 118/66 113/67 O2 Sat by Pulse Oximetry 97 94 L 95 12/22/19 04:00 Temperature 97.7 F Pulse Rate Pulse Rate [Left Radial] 72 Respiratory Rate 18 Blood Pressure Blood Pressure [Left Arm] 103/59 O2 Sat by Pulse Oximetry 95 Labs: Laboratory Last Values WBC 9.7 X10^3/uL (3.6-10.0) 12/22/19 04:30 RBC 4.38 X10^6/uL (4.7-6.0) L 12/22/19 04:30 Hgb 13.3 g/dL (13.5-18.0) L 12/22/19 04:30 Hct 40.2 % (42.0-54.0) L 12/22/19 04:30 MCV 91.6 fL (80.0-100.0) 12/22/19 04:30 MCH 30.3 pg (27.0-34.0) 12/22/19 04:30 MCHC 33.1 g/dL (33.0-35.0) 12/22/19 04:30 RDW 14.1 % (11.6-16.5) 12/22/19 04:30 Plt Count 203 X10^3/uL (150.0-450.0) 12/22/19 04:30 MPV 7.5 fL (7.4-11.0) 12/22/19 04:30 Neut % (Auto) 69.3 % (42.0-75.0) 12/22/19 04:30 Lymph % (Auto) 21.8 % (21.0-51.0) 12/22/19 04:30 [place] % (Auto) 6.8 % (0.0-13.0) 12/22/19 04:30 Eos % (Auto) 1.5 % (0.9-2.9) 12/22/19 04:30 Baso % (Auto) 0.6 % (0.2-1.0) 12/22/19 04:30 Neut # (Auto) 6.7 x10^3/uL (2.2-4.8) H 12/22/19 04:30 Lymph # (Auto) 2.1 X10^3/uL (1.3-2.9) 12/22/19 04:30 [place] # (Auto) 0.7 x10^3/uL (0.3-0.8) 12/22/19 04:30 Eos # (Auto) 0.1 x10^3/uL (0.0-0.2) 12/22/19 04:30 Baso # (Auto) 0.1 X10^3/uL (0.0-0.1) 12/22/19 04:30 Absolute Nucleated RBC 0.0 /100WBC 12/22/19 04:30 Sample Site Lb 12/20/19 10:20 ABG pH 7.480 (7.35-7.45) H 12/20/19 10:20 ABG pCO2 36.0 mmHg (35.0-45.0) 12/20/19 10:20 ABG pO2 117.0 mmHg (80.0-100.0) H 12/20/19 10:20 ABG HCO3 26.8 mmol/L (22-26) H 12/20/19 10:20 ABG O2 Saturation 99.0 % (90-100) 12/20/19 10:20 ABG Base Excess 3.3 mmol/L (-2.0-2.0) H 12/20/19 10:20 Patrick Test Na 12/20/19 10:20 A-a Gradient -12.0 mmHg 12/20/19 10:20 FiO2 21.0 12/20/19 10:20 Blood Gas Comments Bret well cb 12/20/19 10:20 Sodium 141 mmol/L (136-145) 12/22/19 04:30 Corrected Sodium 142 mmol/L (136-145) 12/22/19 04:30 Potassium 3.4 mmol/L (3.5-5.1) L 12/22/19 04:30 Chloride 107 mmol/L (98-107) 12/22/19 04:30 Carbon Dioxide 25.4 mmol/L (21-32) 12/22/19 04:30 BUN 9 mg/dL (7-18) 12/22/19 04:30 Creatinine 0.82 mg/dL (0.70-1.30) 12/22/19 04:30 Est GFR (MDRD) Af Amer > 60 (>60) 12/22/19 04:30 Est GFR (MDRD) Non-Af > 60 (>60) 12/22/19 04:30 Glucose 150 mg/dL (65-99) H 12/22/19 04:30 Lactic Acid 1.2 mmol/L (0.4-2.0) 12/20/19 10:35 Calcium 8.4 mg/dL (8.5-10.1) L 12/22/19 04:30 Corrected Calcium 9.2 mg/dL (8.5-10.1) 12/22/19 04:30 Magnesium 2.2 mg/dL (1.7-2.9) 12/22/19 04:30 Total Bilirubin 0.20 mg/dL (0.2-1.0) 12/22/19 04:30 AST 16 Units/L (15-37) 12/22/19 04:30 ALT 19 Units/L (12-78) 12/22/19 04:30 Alkaline Phosphatase 55 Units/L (46-116) 12/22/19 04:30 Creatine Kinase 58 Units/L (39-308) 12/21/19 04:05 CK-MB (CK-2) < 1.0 ng/mL (0-4.0) 12/21/19 04:05 CK/CKMB % Calc 1.7 % (<4) 12/21/19 04:05 Troponin I < 0.02 ng/mL (0-1.5) 12/21/19 04:05 B-Natriuretic Peptide 42.8 pg/mL (0-79) 12/20/19 10:35 Total Protein 6.4 g/dL (6.4-8.2) 12/22/19 04:30 Albumin 3.0 g/dL (3.4-5.0) L 12/22/19 04:30 Globulin 3.4 g/dL (2.5-4.5) 12/22/19 04:30 Albumin/Globulin Ratio 0.9 Ratio (1.1-2.1) L 12/22/19 04:30 Triglycerides 68 mg/dL (0-150) 12/20/19 10:35 Cholesterol 101 mg/dL (0-200) 12/20/19 10:35 LDL Cholesterol, Calc 33 mg/dL (0-100) 12/20/19 10:35 HDL Cholesterol 54 mg/dL (40-60) 12/20/19 10:35 Cholesterol/HDL Ratio 1.9 (0.0-5.0) 12/20/19 10:35 Specimen Type Random urine 12/20/19 11:01 Urine Color Pale yellow (YELLOW) 12/20/19 11:01 Urine Appearance Clear (CLEAR) 12/20/19 11:01 Urine pH 7.0 (5.0 - 8.0) 12/20/19 11:01 Ur Specific [place] 1.010 (1.000-1.030) 12/20/19 11:01 Urine Protein Negative (NEGATIVE) 12/20/19 11:01 Urine Glucose (UA) Negative (NEGATIVE) 12/20/19 11:01 Urine Ketones Negative (NEGATIVE) 12/20/19 11:01 Urine Occult Blood Negative (NEGATIVE) 12/20/19 11:01 Urine Nitrite Negative (NEGATIVE) 12/20/19 11:01 Urine Bilirubin Negative (NEGATIVE) 12/20/19 11:01 Urine Urobilinogen Normal (NORMAL) 12/20/19 11:01 Ur Leukocyte Esterase Negative (NEGATIVE) 12/20/19 11:01 Reason For Visit: CHEST PAIN RULE OUT NV,COPD EXACERBATION,HYPOXIA Discharge Date Discharge Date: 12/22/19 Discharge Diagnosis All Active Problems (Updated 10/20/19 @ 16:10 by JUANCHO VAZQUEZ) 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 Pt is to keep follow up appointment as instructed and take medications as ordered. Discharge Medications Discharge Medications: No Known Drug Allergies Allergy (Verified 10/20/19 11:39) New Prescriptions azithromycin 250 mg PO DAILY 4 Days #4 tab 12/22/19 [Rx] prednisone 40 mg PO DAILY 5 Days #10 tab 12/22/19 [Rx] Discharge Disposition Assessment: Stable no acute distress noted at time of discharge. Discharge Disposition: Home Discharge Condition: Stable
[2019-12-22] MEDS: LOPRESSOR TAB 50 MG PO SCH (08:26)
[2019-12-22] MEDS: ASPIRIN EC 81 MG PO SCH (08:26)
[2019-12-22] MEDS: SOLU-Medrol 40 MG VIAL IVP SCH (08:28)
[2019-12-22] MEDS: PLAVIX PO SCH (08:37)
[2019-12-22] MEDS: LOVENOX INJ 40 MG SYR SC SCH (08:38)
[2019-12-22] MEDS ORDERED: NS 250 ML IV 250 ML IV ONE (08:56)
[2019-12-22] MEDS: ZITHROMAX INJ 500 MG VIAL 500 MG in NS 250 ML IV 250 ML IV SCH (09:01)
[2019-12-22 09:21] VITALS: BP 118/62
== END 2019-12-22 11:45 | disposition home or self-care (01) ==
LOC: ER 10:02 → MED/SURG 10:02 → ER 13:37 → MED/SURG 14:46
PROVIDERS: ADMIT Internal Medicine; ATTEND Internal Medicine
DX: R07.9 Chest pain, unspecified; I25.2 Old myocardial infarction; I25.10 Atherosclerotic heart disease of native coronary artery without angina pectoris; R51 Headache; I10 Essential (primary) hypertension; J44.1 Chronic obstructive pulmonary disease with (acute) exacerbation

== ENCOUNTER 2023-07-12 12:27 | Observation (INO) ==
--- NOTE | 2023-07-12 12:49 | EKG ---
Test Reason : r/o cva Blood Pressure : */* mmHG Vent. Rate : 49 BPM Atrial Rate : 49 BPM P-R Int : 154 ms QRS Dur : 100 ms QT Int : 454 ms P-R-T Axes : 85 78 84 degrees QTc Int : 410 ms Sinus bradycardia Otherwise normal ECG No previous ECGs available Confirmed by Efrem Garcia MD ([id number]) on 07/12/2023 4:49:33 PM Referred By: Confirmed By: Efrem Garcia MD
[2023-07-12 12:57] LABS: BASOPHILS # (AUTO) 0.1 X10^3/uL (0.0-0.1); BASOPHILS % (AUTO) 0.9 % (0.2-1.0); EOSINOPHILS # (AUTO) 0.1 x10^3/uL (0.0-0.2); EOSINOPHILS % (AUTO) 1.6 % (0.9-2.9); HEMATOCRIT 45.6 % (42.0-54.0); HEMOGLOBIN 15.3 g/dL (13.5-18.0); LYMPHOCYTES # (AUTO) 2.5 X10^3/uL (1.3-2.9); LYMPHOCYTES % (AUTO) 27.6 % (21.0-51.0); MEAN CORPUSCULAR HEMOGLOBIN 30.1 pg (27.0-34.0); MEAN CORPUSCULAR HGB CONC 33.7 g/dL (33.0-35.0); MEAN CORPUSCULAR VOLUME 89.6 fL (80.0-100.0); MEAN PLATELET VOLUME 7.2 fL (7.4-11.0); MONOCYTES # (AUTO) 0.9 x10^3/uL (0.3-0.8); MONOCYTES % (AUTO) 10.5 % (0.0-13.0); NEUTROPHILS # (AUTO) 5.3 x10^3/uL (2.2-4.8); NEUTROPHILS % (AUTO) 59.4 % (42.0-75.0); PLATELET COUNT 229 X10^3/uL (150.0-450.0); RED BLOOD COUNT 5.09 X10^6/uL (4.7-6.0); RED CELL DISTRIBUTION WIDTH 14.7 % (11.6-16.5)
[2023-07-12 13:06] LABS: INR 1.06 (0.8-1.3)
--- NOTE | 2023-07-12 13:09 | DR.WEAKNES ---
HPI Time Seen Time Seen by Provider: 07/12/23 13:08 Primary Care Physician Primary Care Physician: KYLE Victor Complaints Chief Complaint Doctors Comments: His seem to come slurred but if he slowed it down there was normal speech. Patient states that about 2 PM yesterday he started having onset of left sided facial numbness and numbness down his left arm. States he had also been having a problem speaking when he is speaking fast it comes out slurred but if he speaks slowly it comes out okay. Denies chest pain or shortness of breath Chief Complaint:: Pt states that around 2pm yesterday he had a sudden onset of left sided facial numbness and numbness down the left arm. Pt also states that he feels that when he talks slowly his words come out correctly but if he talks fast his words get jumbled. Source History Provided: Patient Mode of Arrival Mode of Arrival: Ambulatory Timing Onset of Chief Complaint: 07/12/23 Symptom Onset: Known Context Stroke Symptoms: Numbness of limbs and Slurring PMH PMH Past Medical History: Yes Past Medical History: COPD, Coronary Artery Disease, Dyslipidemia, Hypertension and CA Past Surgical History: Yes Surgical History: Angioplasty/Stents Family History History of Family Medical Conditions: No Family Medical History: Cancer and Coronary Artery Disease Social History Does patient currently use any type of tobacco product: No Have you used tobacco products in the last 12 months: No Type of Tobacco Use: None Does any household member use tobacco: No Alcohol Use: None Do you use any recreational Drugs:: No Lives With: Alone Lives Where: Home Infectious screening In the last 2 months have you had wt loss of >10#?: NO Have you had fever, night sweats or hemotysis?: No Have you traveled outside the country in the last 6 months?: No Isolation: Standard ROS Review of Systems Constitutional: Other (left side numbness and weakness) Eyes: No Symptoms Reported ENTM: No Symptoms Reported Respiratoy: No Symptoms Reported Cardiovascular: No Symptoms Reported Gastrointestinal/Abdominal: No Symptoms Reported Genitourinary: No Symptoms Reported Neurological: Numbness (left side) Musculoskeletal: Other (weakness left side) Integumentary: No Symptoms Reported Hematologic/Lymphatic: No Symptoms Reported Endocrine: No Symptoms Reported Psychiatric: No Symptoms Reported PE Vital Signs Vitals: Vital Signs Temperature 98.1 F Pulse Rate 48 Pulse Rate 46 Pulse Rate 47 Pulse Rate 46 Pulse Rate 55 Pulse Rate 50 Pulse Rate 48 Pulse Rate 45 Pulse Rate 45 Pulse Rate 46 Pulse Rate 50 Pulse Rate 51 Pulse Rate 50 Pulse Rate 50 Pulse Rate 63 Pulse Rate 50 Pulse Rate 50 Pulse Rate 51 Respiratory Rate 18 Respiratory Rate 16 Respiratory Rate 16 Respiratory Rate 21 Respiratory Rate 28 Respiratory Rate 42 Respiratory Rate 21 Respiratory Rate 15 Respiratory Rate 13 Respiratory Rate 17 Respiratory Rate 27 Respiratory Rate 26 Respiratory Rate 23 Respiratory Rate 23 Respiratory Rate 23 Respiratory Rate 17 Respiratory Rate 20 Respiratory Rate 20 Blood Pressure 123/66 Blood Pressure 108/51 Blood Pressure 134/63 Blood Pressure 157/72 Blood Pressure 143/63 Blood Pressure 143/63 Blood Pressure 143/63 Blood Pressure 129/68 O2 Sat by Pulse Oximetry 99 O2 Sat by Pulse Oximetry 100 O2 Sat by Pulse Oximetry 99 O2 Sat by Pulse Oximetry 100 O2 Sat by Pulse Oximetry 100 O2 Sat by Pulse Oximetry 99 O2 Sat by Pulse Oximetry 99 O2 Sat by Pulse Oximetry 99 O2 Sat by Pulse Oximetry 98 O2 Sat by Pulse Oximetry 100 O2 Sat by Pulse Oximetry 99 O2 Sat by Pulse Oximetry 99 O2 Sat by Pulse Oximetry 99 O2 Sat by Pulse Oximetry 99 O2 Sat by Pulse Oximetry 96 O2 Sat by Pulse Oximetry 97 O2 Sat by Pulse Oximetry 97 General Limitations: No Limitations General Appearance: In Distress (mild distress) Head Head Exam: Normal Inspection, Atraumatic and Normocephalic Eyes Eye exam: Normal Appearance, PERRL and EOMI Eyelids: Normal Inspection: Bilateral Pupils: Regular, Round: Bilateral ENT ENT Exam: Normal Exam, Normal Oropharynx and Normal External Ear Exam Mouth Exam: Normal Inspection Throat Exam: Normal Inspection Neck Neck Exam: Normal Inspection, Full ROM and Trachea Midline Chest Chest Inspection: Normal Inspection and Symmetric Chest Wall Rise Respiratory Respiratory Exam: Normal Lung Sounds Bilat Respiratory Exam: Bilateral: Clear to Auscultation Cardiovascular Cardiovascular Exam: Regular Rate and Normal Rhythm Abdominal Exam Abdominal Exam: Normal Inspection, Normal Bowel Sounds and Soft Extremities Extremities Exam: Normal Inspection and Full ROM Back Back Exam: Normal Inspection Neurologic Neurological Exam: Alert, Oriented X3 and CN II-XII Intact Patient Oriented To: Person, Place and Time Speech: Fluid Speech Motor Strength - LUE: 5/5 Motor Strength - RUE: 5/5 Motor Strength - LLE: 5/5 Motor Strength - RLE: 5/5 Psychiatric Psychiatric Exam: Normal Affect Skin Skin Exam: Warm and Dry MDM Differential Diagnosis Differential Diagnosis: CVA, Electrolyte Disorder and TIA COURSE Treatment Treatment: This patient had a stroke alert that was performed by and he gave some general recommendations. The patient was told to get back on Plavix take 75 mg a day and aspirin 81 mg a day. He advised that we should admit the patient and get a MRI of his brain and get an echocardiogram also. He put in for the patient to get a CTA of the brain and carotid arteries recommended the patient be monitored by telemetry and do neurochecks every 4 hours and if need be he will consult on the patient why they were in the hospital. Patient had a chest x-ray that was negative for intra thoracic abnormality. He had a CTA of his head and neck that showed no stenosis seen in the carotid or vertebral arteries in the neck or cervical of [place]. Was high with some scarring seen in the lung apices in which they suggested that we further evaluate with CT scan of the chest. 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 And there was age-appropriate related atrophy. This patient was told of the findings and the suggestion of the neurologist to admit him to the hospital for neurochecks and to place him back on the Plavix as stated above. He has some point needs to also get an echocardiogram. The patient was also told that he need to get a CT scan of his chest because of the findings on the CTA of head and neck. I spoke to Dr. Sanchez at 1805 and he excepted the patient for further neurologic evaluation and treatment. Dr. Sanchez was advised that the neurologist stated that he could consult on the patient tomorrow morning for follow-up while he was in the hospital and we will contact their neurologist so they can consult on him tomorrow. [facility] Labs Reviewed Laboratory Results Reviewed?: Yes 07/12/23 12:35 07/12/23 12:35 Laboratory: WBC 9.0 X10^3/uL (3.6-10.0) 07/12/23 12:35 RBC 5.09 X10^6/uL (4.7-6.0) 07/12/23 12:35 Hgb 15.3 g/dL (13.5-18.0) 07/12/23 12:35 Hct 45.6 % (42.0-54.0) 07/12/23 12:35 MCV 89.6 fL (80.0-100.0) 07/12/23 12:35 MCH 30.1 pg (27.0-34.0) 07/12/23 12:35 MCHC 33.7 g/dL (33.0-35.0) 07/12/23 12:35 RDW 14.7 % (11.6-16.5) 07/12/23 12:35 Plt Count 229 X10^3/uL (150.0-450.0) 07/12/23 12:35 MPV 7.2 fL (7.4-11.0) L 07/12/23 12:35 Neut % (Auto) 59.4 % (42.0-75.0) 07/12/23 12:35 Lymph % (Auto) 27.6 % (21.0-51.0) 07/12/23 12:35 [place] % (Auto) 10.5 % (0.0-13.0) 07/12/23 12:35 Eos % (Auto) 1.6 % (0.9-2.9) 07/12/23 12:35 Baso % (Auto) 0.9 % (0.2-1.0) 07/12/23 12:35 Neut # (Auto) 5.3 x10^3/uL (2.2-4.8) H 07/12/23 12:35 Lymph # (Auto) 2.5 X10^3/uL (1.3-2.9) 07/12/23 12:35 [place] # (Auto) 0.9 x10^3/uL (0.3-0.8) H 07/12/23 12:35 Eos # (Auto) 0.1 x10^3/uL (0.0-0.2) 07/12/23 12:35 Baso # (Auto) 0.1 X10^3/uL (0.0-0.1) 07/12/23 12:35 Absolute Nucleated RBC 0.1 /100WBC 07/12/23 12:35 PT 13.6 SECONDS (11.8-14.3) 07/12/23 12:35 INR Target Range - 07/12/23 12:35 INR 1.06 (0.8-1.3) 07/12/23 12:35 APTT 30.6 SECONDS (22.9-36.5) 07/12/23 12:35 PTT Comment - 07/12/23 12:35 Fibrinogen 407 mg/dL (239-489) 07/12/23 12:35 Sodium 136 mmol/L (136-145) 07/12/23 12:35 Corrected Sodium TNP 07/12/23 12:35 Potassium 4.7 mmol/L (3.5-5.1) 07/12/23 12:35 Chloride 102 mmol/L (98-107) 07/12/23 12:35 Carbon Dioxide 27.5 mmol/L (21-32) 07/12/23 12:35 BUN 10 mg/dL (7-18) 07/12/23 12:35 Creatinine 0.94 mg/dL (0.70-1.30) 07/12/23 12:35 Est GFR (MDRD) Af Amer > 60 (>60) 07/12/23 12:35 Est GFR (MDRD) Non-Af > 60 (>60) 07/12/23 12:35 Glucose 94 mg/dL (65-99) 07/12/23 12:35 Calcium 9.0 mg/dL (8.5-10.1) 07/12/23 12:35 Corrected Calcium TNP 07/12/23 12:35 Total Bilirubin 0.50 mg/dL (0.2-1.0) 07/12/23 12:35 AST 27 Units/L (15-37) 07/12/23 12:35 ALT 27 Units/L (12-78) 07/12/23 12:35 Alkaline Phosphatase 78 Units/L (46-116) 07/12/23 12:35 Creatine Kinase 57 Units/L (39-308) 07/12/23 12:35 Troponin I High Sens 6.0 ng/L (4.0-60.0) 07/12/23 12:35 Total Protein 7.1 g/dL (6.4-8.2) 07/12/23 12:35 Albumin 3.5 g/dL (3.4-5.0) 07/12/23 12:35 Globulin 3.6 g/dL (2.5-4.5) 07/12/23 12:35 Albumin/Globulin Ratio 1.0 Ratio (1.1-2.1) L 07/12/23 12:35 Triglycerides 63 mg/dL (0-150) 07/12/23 12:35 Cholesterol 110 mg/dL (0-200) 07/12/23 12:35 LDL Cholesterol, Calc 41 mg/dL (0-100) 07/12/23 12:35 HDL Cholesterol 56 mg/dL (40-60) 07/12/23 12:35 Cholesterol/HDL Ratio 2.0 (0.0-5.0) 07/12/23 12:35 Specimen Type Clean catch urine 07/12/23 13:45 Urine Color Pale yellow (YELLOW) 07/12/23 13:45 Urine Appearance Clear (CLEAR) 07/12/23 13:45 Urine pH 6.5 (5.0 - 8.0) 07/12/23 13:45 Ur Specific [place] 1.015 (1.000-1.030) 07/12/23 13:45 Urine Protein Negative (NEGATIVE) 07/12/23 13:45 Urine Glucose (UA) Negative (NEGATIVE) 07/12/23 13:45 Urine Ketones Negative (NEGATIVE) 07/12/23 13:45 Urine Blood Negative (NEGATIVE) 07/12/23 13:45 Urine Nitrite Negative (NEGATIVE) 07/12/23 13:45 Urine Bilirubin Negative (NEGATIVE) 07/12/23 13:45 Urine Urobilinogen Normal (NORMAL) 07/12/23 13:45 Ur Leukocyte Esterase Negative (NEGATIVE) 07/12/23 13:45 Opioid Opioid Risk Tool Age (William box if 16-45): No History of Preadolescent Sexual Abuse: No Total: 0 Total Score Risk Category: Low Risk Copyright: Asim REGAN predicting aberrant behaviors Discharge Plan Diagnosis Discharge Problem: Brain TIA Discharge Plan Patient Disposition: 09 ADMITTED INPATIENT Condition: Stable Orders to Discharge Patient Discharge Orders: Transfer (Routine); Ordered 07/12/23 Ordered By: Abhijeet Magaña
[2023-07-12 13:13] LABS: ALANINE AMINOTRANSFERASE 27 Units/L (12-78); ALBUMIN 3.5 g/dL (3.4-5.0); ALKALINE PHOSPHATASE 78 Units/L (46-116); ASPARTATE AMINO TRANSFERASE 27 Units/L (15-37); BLOOD UREA NITROGEN 10 mg/dL (7-18); CARBON DIOXIDE 27.5 mmol/L (21-32); CHLORIDE 102 mmol/L (98-107); CHOLESTEROL 110 mg/dL (0-200); CREATINE KINASE 57 Units/L (39-308); CREATININE 0.94 mg/dL (0.70-1.30); GLUCOSE 94 mg/dL (65-99); HDL CHOLESTEROL 56 mg/dL (40-60); POTASSIUM 4.7 mmol/L (3.5-5.1); SODIUM 136 mmol/L (136-145); TOTAL PROTEIN 7.1 g/dL (6.4-8.2); TRIGLYCERIDES 63 mg/dL (0-150); eGFR NON BLACK RACES > 60 (>60)
--- NOTE | 2023-07-12 13:37 | TELESTROKE ---
[facility] Consult Date of Consult Date of Exam: 07/12/23 Time of Arrival to the ED: 12:27 Allergies Allergies Allergy/AdvReac Type Severity Reaction Status Date / Time No Known Drug Allergies Allergy Verified 02/10/20 08:51 Vital Signs Vital Signs: Temp Pulse Resp BP Pulse Ox O2 Del Method 07/12/23 12:45 50 L 17 96 07/12/23 12:44 50 L 20 97 07/12/23 12:37 98.1 F 51 L 20 129/68 97 Room Air History of Present Illness History of Present Illness: [facility] Tele[facility]urology Consult Services TeleStroke Metrics: Last Known Well: 07/11/2023 1400 [facility] Notification Time: 07/12/2023 1241 Stamp Time: 07/12/2023 1241 Initial Response Time: 07/12/2023 1249 Arrival Time/Door Time: 07/12/2023 1227 Initial Patient Interaction Time: 07/12/2023 1249 NIHSS Assessment Completed Time: 07/12/2023 1258 Thrombolytic Medical Decision Time: 07/12/2023 1252 Decision on Thrombolytics: Not to give as his last known well time is greater than 4.5 hours prior to his presentation. mRS: 0 Interventional Candidate: Not a candidate as his symptoms are not consistent with a large vessel proximal occlusion. Discussed with Neurointerventionalist at: Not applicable ED Physician notified of diagnostic impression and management plan at: 07/12/2023 1311 Patient Location: [facility] My Location: An office in [place] Chief Complaint: Left-sided weakness/numbness HPI: Asked to see this patient in emergent telemedicine consultation utilizing interactive audio and video technologies. Consultation was performed with assistance of ancillary / medical staff at bedside. Verbal consent to perform the examination with telemedicine was obtained. Patient agreed to proceed with the consultation for acute stroke protocol. 73-year-old right-handed white male who was brought to the emergency room by his neighbor via private vehicle for evaluation of persistent left-sided numbness and weakness since yesterday afternoon. Patient denies any prior history for stroke. He states he is currently on Plavix for a history of coronary stenting. He would later mention [facility] to take Plavix every other day due to some type of bleeding blister on his back. He has been on this Plavix every other day regiment over the last 6 months. He states he also takes atorvastatin 40 mg daily and metoprolol. Patient first started noticing left-sided symptoms yesterday afternoon around 2 PM. He noted that his left arm felt heavy and numb. He also felt like the left side of his face was numb and tingly, and the left corner of his mouth would "draw" causing him to have slurred speech. He also noted some involvement of his left leg. Patient states that his symptoms overall have been constant since yesterday afternoon with waxing and waning in the intensity of his left-sided symptoms. Then this morning, he noted he had trouble walking where he felt like he was dragging his left leg more. He denies any associated headaches or chest pain. PMH: Hypertension Hyperlipidemia COPD Coronary artery disease with prior coronary stent SOC: Negative x 3. Patient quit smoking approximately 6 years ago. He lives alone. He follows up with [facility] typically. FMH: Negative for strokes. ROS: 13 point review of systems were reviewed with the patient, and are all negative with the exception of the aforementioned in the history of present illness. VS: Temperature 98.1 F, pulse 49, blood pressure 129/68, oxygen saturation 97% on room air Exam: Patient is in no apparent distress. Patient appears as stated age. No obvious acute respiratory or cardiac distress. Patient is well groomed and well -nourished. 1a- LOC: Keenly responsive - 0 1b- LOC questions: Answers both questions correctly - 0 1c- LOC commands- Performs both tasks correctly- 0 2- Gaze: Normal; no gaze paresis or gaze deviation - 0 3- Visual Hong: normal, no Visual field deficit - 0 4- Facial movements: No facial palsy - 0 5- Upper limb motor No arm drift - 0 6- Lower limb motor No leg drift - 0 7- Limb Coordination: absent ataxia - 0 8- Sensory: Left face and arm sensory loss - 1 9- Language - No aphasia - 0 10- Speech - No dysarthria - 0 11- Neglect / Extinction - none found - 0 NIHSS score: 1 Diagnostic Data: CT head is still currently pending and has not been acquired yet EKG from 03/13/2020 showed normal sinus rhythm at 76 bpm Blood glucose 91 WBC 9, hemoglobin 15.3, platelets 229 Medical Data Reviewed: 1.Data?reviewed include clinical labs, radiology,?and medical tests; 2.Tests?results discussed w/performing or interpreting physician; 3.Obtaining/reviewing old medical records; 4.Obtaining?case history from another source; 5.Independent?review of image, tracing, or specimen. Medical Decision Making: - Extensive number of diagnosis or management options are considered below. - Extensive amount of complex data reviewed. - High risk of complication and/or morbidity or mortality are associated with differential diagnostic considerations below. - There may be?uncertain?outcome and increased probability of prolonged functional impairment or high probability of severe prolonged functional impairment associated with some of these differential diagnosis. Differential Diagnosis for Stroke: 1.?Cardioembolic?stroke 2. Small vessel disease/lacune 3. Thromboembolic, wabhzi-ek-vbhiis mechanism 4.?Hypercoagulable?state-related infarct 5. Transient ischemic attack 6. Thrombotic mechanism, large artery disease Assessment: 1. Possible acute right MCA subcortical stroke 2. Coronary artery disease with prior coronary stent 3. Hypertension 4. Hyperlipidemia 5. COPD Recommendations: Patient can be admitted to the hospital for further workup of his symptoms Allow permissive hypertension DVT prophylaxis per primary team Neuro checks q 4 hours Patient can remain on his Plavix 75 mg daily, which he should take daily now. Patient can also be given full dose aspirin x 1 now, and be maintained on a baby aspirin. Patient can remain on a baby aspirin and Plavix 75 mg daily for 21 days. Afterwards, he can remain on daily Plavix monotherapy. Check MRI brain without contrast to rule out any acute intracranial process Will go ahead and check a formal CTA of the head and neck to better evaluate his intracranial and extracranial blood vessels, with particular attention to the right carotid system. Check echocardiogram to gauge his cardiac function Maintain the patient on telemetry to look for paroxysmal atrial fibrillation or any other cardiac arrhythmias Check hemoglobin A1c, lipid panel, TSH, B12 level Consult PT, OT, and ST Continue supportive care Plan of care was discussed with the patient Case discussed with the ER staff and Dr. Magaña. Thank you for allowing [facility] to participate in the care of your patient. Please call me, Dr. Knight, with any questions via the [facility] center at . For Inpatient follow-up with [facility] physician please call [facility] at . This is not an outpatient service. Post hospital discharge, please contact the hospital directly. Critical Care notation: I was called to see this critical patient emergently. I personally evaluated this critical patient for acute stroke evaluation, and determining their eligibility for IV thrombolytics and interventional therapies. I have spent approximately 11 minutes with the patient, including time at bedside, time discussing the case with other physicians, reviewing plan of care, and time independently reviewing the records and scans. Medical Decision Making 07/12/23 12:35 07/12/23 12:35 Labs: Laboratory Results - last 24 hr 07/12/23 12:35 WBC 9.0 RBC 5.09 Hgb 15.3 Hct 45.6 MCV 89.6 MCH 30.1 MCHC 33.7 RDW 14.7 Plt Count 229 MPV 7.2 L Neut % (Auto) 59.4 Lymph % (Auto) 27.6 Charles % (Auto) 10.5 Eos % (Auto) 1.6 Baso % (Auto) 0.9 Neut # (Auto) 5.3 H Lymph # (Auto) 2.5 Charles # (Auto) 0.9 H Eos # (Auto) 0.1 Baso # (Auto) 0.1 Absolute Nucleated RBC 0.1 PT 13.6 INR Target Range - INR 1.06 APTT 30.6 PTT Comment - Fibrinogen 407 Sodium 136 Corrected Sodium TNP Potassium 4.7 Chloride 102 Carbon Dioxide 27.5 BUN 10 Creatinine 0.94 Est GFR (MDRD) Af Amer > 60 Est GFR (MDRD) Non-Af > 60 Glucose 94 Calcium 9.0 Corrected Calcium TNP Total Bilirubin 0.50 AST 27 ALT 27 Alkaline Phosphatase 78 Creatine Kinase 57 Troponin I High Sens 6.0 Total Protein 7.1 Albumin 3.5 Globulin 3.6 Albumin/Globulin Ratio 1.0 L Triglycerides 63 Cholesterol 110 LDL Cholesterol, Calc 41 HDL Cholesterol 56 Cholesterol/HDL Ratio 2.0
[2023-07-12 13:54] LABS: BILIRUBIN,URINE NEGATIVE (NEGATIVE); BLOOD/HEMOGLOBIN,URINE NEGATIVE (NEGATIVE); GLUCOSE, URINE NEGATIVE (NEGATIVE); KETONES,URINE NEGATIVE (NEGATIVE); LEUKOCYTE ESTERASE ,URINE NEGATIVE (NEGATIVE); NITRITES,URINE NEGATIVE (NEGATIVE); PH,URINE 6.5 (5.0 - 8.0); PROTEIN,URINE NEGATIVE (NEGATIVE); UROBILINOGEN,URINE NORMAL (NORMAL)
[2023-07-12 13:58] LABS: APPEARANCE,URINE CLEAR (CLEAR); COLOR,URINE PALE YELLOW (YELLOW)
--- NOTE | 2023-07-12 14:18 | RAD ---
EXAM:CHEST, 1 VIEWHISTORY:NUMNESS TO FACE AND LEFT ARM, POSS CVA;COMPARISON:Prior study or studies were utilized for comparison during interpretation with the most relevant dated 05/25/2020TECHNIQUE:CHEST, 1 VIEWFINDINGS:Chest:Lines and tubes: Cardiac leads overlie the chest.Mediastinum: Cardiac and mediastinal shadow is within normal limits for size and contour.Pulmonary vessels: No pulmonary vascular congestion.Lung ingram: No suspicious airspace opacity.Pleura: No effusion. No pneumothorax.Bones and soft tissues: No acute osseous or soft tissue abnormality.IMPRESSION:1. No acute cardiopulmonary abnormalityTHIS IS AN ELECTRONICALLY VERIFIED FINAL REPORT07/12/2023 2:15 PM - Electronically signed by Chan Marie MD
--- NOTE | 2023-07-12 14:50 | CT ---
EXAM:BRAIN W/O CONHISTORY:Left-sided weaknessTECHNIQUE:Axial noncontrast images with coronal and sagittal reformats. Dose reduction procedures were used with mA/kv adjusted for body size.COMPARISON:None availableFINDINGS:The ventricles, cortical sulci, and other CSF spaces are mildly enlarged consistent with generalized atrophy likely age-related. There is decreased attenuation in the periventricular white matter consistent with diffuse small-vessel vascular disease. There are no focal areas of abnormal attenuation to suggest recent or remote CVA, hemorrhage, contusion, mass lesion, or extra-axial fluid collection. Visualized sinuses are clear. The calvarium is intact. If acute CVA is a strong clinical consideration MRI with diffusion imaging would be of further diagnostic value and should be considered.IMPRESSION:No definite acute intracranial abnormality identified. See recommendation as aboveGeneralized atrophy likely age-relatedDiffuse small-vessel vascular diseaseTHIS IS AN ELECTRONICALLY VERIFIED FINAL REPORT07/12/2023 2:46 PM - Electronically signed by Joesph Sanchez MD
--- NOTE | 2023-07-12 15:24 | CT ---
EXAM:CTA head and neck with IV contrastHISTORY:LEFT SIDED WEAKNESS; CAD, HTN, COPD, ANGIOPLASTY/STENTS, ORTHO -COMPARISON:None.TECHNIQUE:CTA of the [place] andcarotid and vertebral arteries in the neck is performed with IV contrast. 3D MIP reconstructions are performed. Images are evaluated using NASCET criteria.FINDINGS:There is probable scarring in the lung apices but a few of the densities are slightly nodular. This is a changed appearance since prior CT of the chest and 2019. Recommend further evaluation with chest CT.Vertebral arteries appear codominant. No vertebral artery stenosis or dissection is seen. Motion slightly limits evaluation. No right CCA or ICA stenosis is seen in the neck. There is a small focus of calcified plaque in the proximal left ICA causing 20% stenosis. Small likely reactive cervical lymph nodes are present.Trace calcified plaque in the intradural course of the left vertebral artery causes no significant stenosis. There is no basilar artery stenosis. No posterior communicating arteries are seen.Anterior communicating artery is present. Calcified plaque in the cavernous and supraclinoid ICAs causes mild stenosis. There is another small focus of calcified plaque in the distal left M1 segment causing no significant stenosis. No aneurysm is seen.IMPRESSION:No significant stenosis is seen in the carotid or vertebral arteries in the neck or in the [id number]-Hjsqyi.Probable scarring is seen in the lung apices but a few of the densities are nodular. This is a changed appearance since prior CT in 2019. Suggest further evaluation with chest CT.THIS IS AN ELECTRONICALLY VERIFIED FINAL REPORT07/12/2023 3:20 PM - Electronically signed by Julio Vergara MD
--- NOTE | 2023-07-12 15:24 | CT ---
EXAM: CTA head and neck with IV contrast HISTORY: LEFT SIDED WEAKNESS; CAD, HTN, COPD, ANGIOPLASTY/STENTS, ORTHO - COMPARISON: None. TECHNIQUE: CTA of the [place] andcarotid and vertebral arteries in the neck is performed with IV contra st. 3D MIP reconstructions are performed. Images are evaluated using NASCET criteria. FINDINGS: There is probable scarring in the lung apices but a few of the densities are slightly nodular. This is a changed appearance since prior CT of the chest and 2019. Recommend further evaluation with ches t CT. Vertebral arteries appear codominant. No vertebral artery stenosis or dissection is seen. Motion sl ightly limits evaluation. No right CCA or ICA stenosis is seen in the neck. There is a small focus of calcified plaque in the proximal left ICA causing 20% stenosis. Small likely reactive cervical ly mph nodes are present. Trace calcified plaque in the intradural course of the left vertebral artery causes no significant st enosis. There is no basilar artery stenosis. No posterior communicating arteries are seen. Anterior communicating artery is present. Calcified plaque in the cavernous and supraclinoid ICAs ca uses mild stenosis. There is another small focus of calcified plaque in the distal left M1 segment c ausing no significant stenosis. No aneurysm is seen. IMPRESSION: No significant stenosis is seen in the carotid or vertebral arteries in the neck or in the [place]. Probable scarring is seen in the lung apices but a few of the densities are nodular. This is a tyalor ed appearance since prior CT in 2019. Suggest further evaluation with chest CT. THIS IS AN ELECTRONICALLY VERIFIED FINAL REPORT 07/12/2023 3:20 PM - Electronically signed by Julio Vergara MD
--- NOTE | 2023-07-12 16:35 | MRI ---
EXAM:BRAIN W/O CONHISTORY:LEFT SIDED WEAKNESS/ R/O STROKE ;COMPARISON:CT head without contrast from July 12, 2023TECHNIQUE:Non-contrast MRI images of the brain were obtained utilizing a routine protocol.FINDINGS:Periventricular chronic microvascular disease.Age related global atrophy.No abnormal signal in the dural sinuses on the sagittal T1 sequence.Pituitary gland and stalk appear normal.No mass effect on the optic chiasm.No Chiari 1 malformation.Imaged portion of the spine and spinal cord appear grossly normal.No restricted diffusion.Flow voids appear normal on the T2 sequence.No intracranial, extra-axial, fluid collection.No mass, mass effect or midline shift.No abnormal areas of acute T2 signal in the brain parenchyma.No blooming artifact in the brain parenchyma.Sinuses are well aeratedMastoid air cells are well aerated.Globes and intra-orbital contents appear normal.IMPRESSION:1. No acute intracranial abnormality identified.2. Periventricular chronic microvascular disease and age related global atrophy.THIS IS AN ELECTRONICALLY VERIFIED FINAL REPORT07/12/2023 4:32 PM - Electronically signed by Patrice Reed MD
[2023-07-12] MEDS: DUONEB 0.5 MG/3 MG (3 mL) NEB PRN (21:03)
[2023-07-12] MEDS: LOPRESSOR TAB 50 MG PO SCH (21:47)
[2023-07-12] MEDS: LIPITOR TAB 40 MG PO SCH (21:47)
[2023-07-12 23:27] VITALS: BMI 21.3
[2023-07-13 06:19] LABS: BASOPHILS # (AUTO) 0.1 X10^3/uL (0.0-0.1); BASOPHILS % (AUTO) 0.8 % (0.2-1.0); EOSINOPHILS # (AUTO) 0.2 x10^3/uL (0.0-0.2); EOSINOPHILS % (AUTO) 1.9 % (0.9-2.9); HEMATOCRIT 42.6 % (42.0-54.0); HEMOGLOBIN 14.5 g/dL (13.5-18.0); LYMPHOCYTES # (AUTO) 1.8 X10^3/uL (1.3-2.9); LYMPHOCYTES % (AUTO) 17.7 % (21.0-51.0); MEAN CORPUSCULAR HEMOGLOBIN 30.5 pg (27.0-34.0); MEAN CORPUSCULAR VOLUME 89.7 fL (80.0-100.0); MEAN PLATELET VOLUME 7.2 fL (7.4-11.0); MONOCYTES % (AUTO) 9.9 % (0.0-13.0); NEUTROPHILS # (AUTO) 7.1 x10^3/uL (2.2-4.8); NEUTROPHILS % (AUTO) 69.7 % (42.0-75.0); PLATELET COUNT 200 X10^3/uL (150.0-450.0); RED BLOOD COUNT 4.75 X10^6/uL (4.7-6.0); RED CELL DISTRIBUTION WIDTH 14.5 % (11.6-16.5); WHITE BLOOD COUNT 10.2 X10^3/uL (3.6-10.0)
[2023-07-13 06:28] LABS: ALANINE AMINOTRANSFERASE 25 Units/L (12-78); ALBUMIN 3.1 g/dL (3.4-5.0); ALKALINE PHOSPHATASE 67 Units/L (46-116); ASPARTATE AMINO TRANSFERASE 21 Units/L (15-37); BLOOD UREA NITROGEN 10 mg/dL (7-18); CALCIUM 8.8 mg/dL (8.5-10.1); CARBON DIOXIDE 27.9 mmol/L (21-32); CHLORIDE 104 mmol/L (98-107); COR CA(FOR HYPOALB) 9.5 mg/dL (8.5-10.1); CREATININE 0.87 mg/dL (0.70-1.30); GLUCOSE 80 mg/dL (65-99); POTASSIUM 4.5 mmol/L (3.5-5.1); SODIUM 139 mmol/L (136-145); TOTAL PROTEIN 6.4 g/dL (6.4-8.2); eGFR NON BLACK RACES > 60 (>60)
[2023-07-13] MEDS: ASPIRIN EC 81 MG PO SCH (08:15)
[2023-07-13] MEDS: PLAVIX PO SCH (08:15)
--- NOTE | 2023-07-13 12:41 | DR.H&P ---
H&P History & Physical for Day of: H&P Date: 07/13/23 Chief Complaint Chief Complaint: Acute left facial and left arm numbness and tingling Allergies Allergies Allergy/AdvReac Type Severity Reaction Status Date / Time No Known Drug Allergies Allergy Verified 02/10/20 08:51 History of Present Illness History of Present Illness: This is a pleasant 73-year-old white male who presented to the [facility] emergency department yesterday after having developed acute onset of left facial and left arm numbness and a tingling sensation. This happened at 1400 today before yesterday and the symptoms were still ongoing yesterday in the emergency department in the afternoon. The patient also stated that when he tried to talk fast his words will get slurred but when he slowed down that he can speak clearly. He also felt like he was dragging his left leg. He does have previous symptoms of TIAs and has previously been on aspirin 81 mg a day and Plavix 75 mg every other day. He does have known history of coronary artery disease, hyperlipidemia, and COPD in the past. Telemetry consultation was done with neurology and they recommended that the patient restart regular aspirin 3 and 25 mg p.o. x 1 along with Plavix 75 mg daily and then continue him with a baby aspirin daily thereafter. He recommended the patient continue baby aspirin and Plavix combo for total 21 days and thereafter continue him on Plavix 75 mg without the baby aspirin. The patient had a CT of the brain along with MRI of the brain that were normal except for age-related changes. The patient also underwent CTA of the neck and brain and it showed his vessels were clear except for a 20% stenosis in the left internal carotid artery. The neurologist also recommended the patient have ech ocardiogram and I am in agreement with that as well. This will help to establish a baseline cardiac function for him. This morning the patient is symptom-free and has no left-sided facial left arm numbness. He is feeling back to normal and has no new complaints today. I reviewed all his test with him and let him know that he did not have any significant stenosis in any areas. We did however notice that he had changing pulmonary nodules in the upper lobes of his lungs seen incidentally on CT scan of the head. The radiologist recommended that we proceed with a full CT of the lungs to further characterize these pulmonary nodules. I told the patient we will go ahead and plan on doing that today and try to get echocardiogram as well. Patient is a former smoker but quit 6 years ago. Past Medical History Past Medical History: COPD, Coronary Artery Disease, Dyslipidemia, Hypertension and [place] Past Surgical History Surgical History: Angioplasty/Stents and Ortho Surgery Family History Family Medical History: Cancer and Coronary Artery Disease Social History Does patient currently use any type of tobacco product: No (smoked cigs for 44 years.) Have you used tobacco products in the last 12 months: No Type of Tobacco Use: None How many years tobacco product used: 44 Does any household member use tobacco: No Alcohol Use: None Drug Use: None Medications Home Medications: Home Medications Medication Instructions Recorded Confirmed Type aspirin 81 mg tablet,delayed 81 mg PO DAILY 11/02/17 12/21/19 History release (Aspir-) atorvastatin 40 mg tablet (Lipitor) 40 mg PO HS 11/02/17 12/21/19 History clopidogrel 75 mg tablet (Plavix) 75 mg PO DAILY 11/02/17 12/21/19 History ipratropium 0.5 mg-albuterol 3 mg 0.5 - 2.5 mg inhalation Q6H PRN 11/02/17 12/21/19 History (2.5 mg base)/3 mL nebulization Wheezing soln metoprolol tartrate 50 mg tablet 50 mg PO BID 11/02/17 12/21/19 History (Lopressor) Labs 07/13/23 05:22 07/13/23 05:22 Labs: Laboratory WBC 10.2 X10^3/uL (3.6-10.0) H 07/13/23 05:22 RBC 4.75 X10^6/uL (4.7-6.0) 07/13/23 05:22 Hgb 14.5 g/dL (13.5-18.0) 07/13/23 05:22 Hct 42.6 % (42.0-54.0) 07/13/23 05:22 MCV 89.7 fL (80.0-100.0) 07/13/23 05:22 MCH 30.5 pg (27.0-34.0) 07/13/23 05:22 MCHC 34.0 g/dL (33.0-35.0) 07/13/23 05:22 RDW 14.5 % (11.6-16.5) 07/13/23 05:22 Plt Count 200 X10^3/uL (150.0-450.0) 07/13/23 05:22 MPV 7.2 fL (7.4-11.0) L 07/13/23 05:22 Neut % (Auto) 69.7 % (42.0-75.0) 07/13/23 05:22 Lymph % (Auto) 17.7 % (21.0-51.0) L 07/13/23 05:22 Bullock % (Auto) 9.9 % (0.0-13.0) 07/13/23 05:22 Eos % (Auto) 1.9 % (0.9-2.9) 07/13/23 05:22 Baso % (Auto) 0.8 % (0.2-1.0) 07/13/23 05:22 Neut # (Auto) 7.1 x10^3/uL (2.2-4.8) H 07/13/23 05:22 Lymph # (Auto) 1.8 X10^3/uL (1.3-2.9) 07/13/23 05:22 Bullock # (Auto) 1.0 x10^3/uL (0.3-0.8) H 07/13/23 05:22 Eos # (Auto) 0.2 x10^3/uL (0.0-0.2) 07/13/23 05:22 Baso # (Auto) 0.1 X10^3/uL (0.0-0.1) 07/13/23 05:22 Absolute Nucleated RBC 0.1 /100WBC 07/13/23 05:22 PT 13.6 SECONDS (11.8-14.3) 07/12/23 12:35 INR Target Range - 07/12/23 12:35 INR 1.06 (0.8-1.3) 07/12/23 12:35 APTT 30.6 SECONDS (22.9-36.5) 07/12/23 12:35 PTT Comment - 07/12/23 12:35 Fibrinogen 407 mg/dL (239-489) 07/12/23 12:35 Sodium 139 mmol/L (136-145) 07/13/23 05:22 Corrected Sodium TNP 07/13/23 05:22 Potassium 4.5 mmol/L (3.5-5.1) 07/13/23 05:22 Chloride 104 mmol/L (98-107) 07/13/23 05:22 Carbon Dioxide 27.9 mmol/L (21-32) 07/13/23 05:22 BUN 10 mg/dL (7-18) 07/13/23 05:22 Creatinine 0.87 mg/dL (0.70-1.30) 07/13/23 05:22 Est GFR (MDRD) Af Amer > 60 (>60) 07/13/23 05:22 Est GFR (MDRD) Non-Af > 60 (>60) 07/13/23 05:22 Glucose 80 mg/dL (65-99) 07/13/23 05:22 Calcium 8.8 mg/dL (8.5-10.1) 07/13/23 05:22 Corrected Calcium 9.5 mg/dL (8.5-10.1) 07/13/23 05:22 Total Bilirubin 0.40 mg/dL (0.2-1.0) 07/13/23 05:22 AST 21 Units/L (15-37) 07/13/23 05:22 ALT 25 Units/L (12-78) 07/13/23 05:22 Alkaline Phosphatase 67 Units/L (46-116) 07/13/23 05:22 Creatine Kinase 57 Units/L (39-308) 07/12/23 12:35 Troponin I High Sens 6.0 ng/L (4.0-60.0) 07/12/23 12:35 Total Protein 6.4 g/dL (6.4-8.2) 07/13/23 05:22 Albumin 3.1 g/dL (3.4-5.0) L 07/13/23 05:22 Globulin 3.3 g/dL (2.5-4.5) 07/13/23 05:22 Albumin/Globulin Ratio 0.9 Ratio (1.1-2.1) L 07/13/23 05:22 Triglycerides 63 mg/dL (0-150) 07/12/23 12:35 Cholesterol 110 mg/dL (0-200) 07/12/23 12:35 LDL Cholesterol, Calc 41 mg/dL (0-100) 07/12/23 12:35 HDL Cholesterol 56 mg/dL (40-60) 07/12/23 12:35 Cholesterol/HDL Ratio 2.0 (0.0-5.0) 07/12/23 12:35 Specimen Type Clean catch urine 07/12/23 13:45 Urine Color Pale yellow (YELLOW) 07/12/23 13:45 Urine Appearance Clear (CLEAR) 07/12/23 13:45 Urine pH 6.5 (5.0 - 8.0) 07/12/23 13:45 Ur Specific [place] 1.015 (1.000-1.030) 07/12/23 13:45 Urine Protein Negative (NEGATIVE) 07/12/23 13:45 Urine Glucose (UA) Negative (NEGATIVE) 07/12/23 13:45 Urine Ketones Negative (NEGATIVE) 07/12/23 13:45 Urine Blood Negative (NEGATIVE) 07/12/23 13:45 Urine Nitrite Negative (NEGATIVE) 07/12/23 13:45 Urine Bilirubin Negative (NEGATIVE) 07/12/23 13:45 Urine Urobilinogen Normal (NORMAL) 07/12/23 13:45 Ur Leukocyte Esterase Negative (NEGATIVE) 07/12/23 13:45 Review of Systems Constitutional: No Symptoms Reported Eyes: No Symptoms Reported ENT: No Symptoms Reported Respiratory: No Symptoms Reported Cardiovascular: No Symptoms Reported Gastrointestinal: No Symptoms Reported Genitourinary: No Symptoms Reported Musculoskeletal: No Symptoms Reported Skin: No Symptoms Reported Neurological: No Symptoms Reported Physical Exam Vital Signs: Vital Signs Temperature 97.9 F Pulse Rate [Left Radial] 68 Respiratory Rate 20 Blood Pressure [Left Arm] 96/51 O2 Sat by Pulse Oximetry 91 Oriented: Normal, Time, Person and Place Eyes: Normal Ear: Normal Nose: Normal Throat: Normal Respiratory: Clear Throughout Cardiovascular: Normal Auscultation: Bowel Sounds: Normal Palpation: Normal Tenderness: Normal Skin: Normal Musculoskeletal: Normal Psychiatric: Normal Mood Description: Calm Affect: Normal Speech Pattern: Clear and Appropriate Assessment/Plan (1) Brain TIA: Status: Acute Plan: Continue aspirin 81 mg daily for total of 3 weeks and Plavix 75 mg daily. Blood pressure control as well as statin therapy. 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 (4) Hyperlipidemia: Status: Acute Review H&P Reviewed: Yes Patient was examined?: Yes
[2023-07-13] MEDS: DUONEB 0.5 MG/3 MG (3 mL) NEB ONE (13:05)
--- NOTE | 2023-07-13 16:03 | CT ---
EXAM:CHEST WITH CONTRASTHISTORY:NODULES IN LUNG APICES; HX- HTN, COPD, KS, CAD SX- STENTSCOMPARISON:None.TECHNIQUE:Followin g the intravenous administration of iodinated contrast, spiral CT imaging was performed through the chest and axial, coronal, and sagittal CT images were generated.FINDINGS:the heart size is normal. There is atherosclerosis in the LAD, 1st and 2nd diagonal, circumflex, and RCA. Main pulmonary artery measures 3.2 cm in diameter and this suggests pulmonary artery hypertension. There is excellent contrast enhancement in the pulmonary circulation and no pulmonary embolus. There is no aortic aneurysm or dissection. There are reactive size mediastinal and hilar lymph nodes. The airways are clear. There is upper lobe emphysema. There are multiple nodules in both lungs all of which have a similar appearance with irregular margins suggestive of scarring. Differential would include malignancy. These have a upper lobe predominance with relative sparing in the bases. There is no pleural effusion. There are some stones in the kidneys with the largest on the right side measuring up to 5 mm in diameter.IMPRESSION:1. There are multiple non-specific pulmonary nodules which differential includes postinfectious scarring or malignancy. Follow-up as clinically indicated.2. Pulmonary artery hypertension.THIS IS AN ELECTRONICALLY VERIFIED FINAL REPORT07/13/2023 4:00 PM - Electronically signed by Joao Mckenna MD
[2023-07-13] MEDS: NS 100 ML IV 100 ML ONE (18:06)
[2023-07-13] MEDS: OMNIPAQUE 350 mg/mL 100 mL BTL 100 ML ONE (18:06)
[2023-07-14 05:37] LABS: BASOPHILS # (AUTO) 0.1 X10^3/uL (0.0-0.1); BASOPHILS % (AUTO) 0.9 % (0.2-1.0); EOSINOPHILS # (AUTO) 0.3 x10^3/uL (0.0-0.2); EOSINOPHILS % (AUTO) 3.2 % (0.9-2.9); HEMATOCRIT 46.3 % (42.0-54.0); HEMOGLOBIN 15.5 g/dL (13.5-18.0); LYMPHOCYTES # (AUTO) 2.8 X10^3/uL (1.3-2.9); LYMPHOCYTES % (AUTO) 31.4 % (21.0-51.0); MEAN CORPUSCULAR HEMOGLOBIN 30.2 pg (27.0-34.0); MEAN CORPUSCULAR HGB CONC 33.4 g/dL (33.0-35.0); MEAN CORPUSCULAR VOLUME 90.2 fL (80.0-100.0); MEAN PLATELET VOLUME 7.2 fL (7.4-11.0); MONOCYTES # (AUTO) 1.1 x10^3/uL (0.3-0.8); NEUTROPHILS # (AUTO) 4.7 x10^3/uL (2.2-4.8); NEUTROPHILS % (AUTO) 52.5 % (42.0-75.0); PLATELET COUNT 217 X10^3/uL (150.0-450.0); RED BLOOD COUNT 5.14 X10^6/uL (4.7-6.0); RED CELL DISTRIBUTION WIDTH 14.7 % (11.6-16.5)
[2023-07-14 06:13] LABS: ALANINE AMINOTRANSFERASE 28 Units/L (12-78); ALBUMIN 3.7 g/dL (3.4-5.0); ALKALINE PHOSPHATASE 78 Units/L (46-116); ASPARTATE AMINO TRANSFERASE 23 Units/L (15-37); BLOOD UREA NITROGEN 14 mg/dL (7-18); CARBON DIOXIDE 28.4 mmol/L (21-32); CHLORIDE 102 mmol/L (98-107); CREATININE 1.03 mg/dL (0.70-1.30); GLUCOSE 101 mg/dL (65-99); POTASSIUM 4.4 mmol/L (3.5-5.1); SODIUM 141 mmol/L (136-145); TOTAL PROTEIN 7.4 g/dL (6.4-8.2); eGFR NON BLACK RACES > 60 (>60)
[2023-07-14 09:25] VITALS: BP 112/53; PULSE 78; RESP 18; TEMP 97.5; O2SAT 95
== END 2023-07-14 10:15 | disposition home or self-care (01) ==
LOC: MED/SURG 12:27 → ER 12:27 → MED/SURG 20:00
PROVIDERS: ADMIT Family Medicine; ATTEND Family Medicine